=== PATIENT | male | born 1950 | race Caucasian/White ===

== ENCOUNTER 2016-11-04 11:21 | Emergency (ER) | payer MEDICARE ==
--- NOTE | 2016-11-04 12:02 | ER Document Report ---
ED Extremity Problem, Lower - General Chief Complaint: Knee Pain Stated Complaint: KNEE PAIN Time Seen by Provider: 11/04/16 11:41 Mode of Arrival: Ambulatory Information source: Patient TRAVEL OUTSIDE OF THE [place] IN LAST 30 DAYS: No - HPI Patient complains to provider of: Pain Location: Knee Occurred: Last week Quality of pain: Achy Severity: Moderate Pain Level: 2 Recent injury: No Associated symptoms: denies: Chest pain, Chills, Dizzy, Fainting, Fever, Gray a crack, Gray a pop, Hurts to breath, Painful ambulation, Rapid heart rate, Seizure, Short of breath, Sweaty, Unable to bear weight, Weak Exacerbated by: Movement, Walking Relieved by: Rest Notes: Patient arrives with complaints of right knee pain. The patient states that he walks anywhere from 5-11 miles a day for the last week he has been having increased pain in the right knee. No traumatic injury or fall. He feels like the knee is slightly swollen. No redness. No fever. No numbness, tingling, weakness. No chest pain or shortness of breath. He denies any other complaints. Past Medical History - Social History Smoking Status: Former Smoker Frequency of alcohol use: Occasional Drug Abuse: None Family History: Reviewed & Not Pertinent Patient has suicidal ideation: No Patient has homicidal ideation: No - Past Medical History Cardiac Medical History: Reports: Hx Heart Attack Renal/ Medical History: Denies: Hx Peritoneal Dialysis Past Surgical History: Reports: Hx Cardiac Catheterization - Immunizations Hx Diphtheria, Pertussis, Tetanus Vaccination: Yes Review of Systems - Review of Systems -: Yes All other systems reviewed and negative Physical Exam - Vital signs Vitals: Temp Pulse Resp BP Pulse Ox 98.7 F 59 L 18 126/69 H 95 11/04/16 11:26 11/04/16 11:26 11/04/16 11:26 11/04/16 11:26 11/04/16 11:26 - Notes Notes: GENERAL: alert, cooperative, nontoxic, no distress. HEAD: normocephalic, atraumatic EYES: conjunctiva pink without discharge, no external redness or swelling. EARS: no external swelling, no external redness NOSE: atraumatic, no external swelling MOUTH/THROAT: mucous membranes moist and pink NECK: soft, supple, full range of motion, no meningismus. CHEST: no distress, lungs clear and equal throughout. No wheezing, rales, rhonchi. CARDIAC: regular rate and rhythm, no murmur, normal capillary refill, normal pulses. BACK: full range of motion, no CVA tenderness. EXTREMITIES: full range of motion of all extremities. No redness, no swelling. Mild tenderness palpation of the medial aspect of the right knee. No ligament instability. Normal pulse and sensation distally. NEURO: alert and oriented 3, no focal deficits, full range of motion of all extremities. PYSCH: appropriate mood, affect. Patient is cooperative. SKIN: pink, warm, dry, no rash. Course - Re-evaluation Re-evalutation: 11/04/16 12:55 Patient is nontoxic appearing with stable vitals. The patient has had right knee pain for approximately 1 week now. He walks a lot. There is no traumatic injury. He has no ligament instability on his exam. There is no redness or increased heat to touch. He has full range of motion and normal weightbearing. There is no signs of infection. X-ray shows some mild arthritis and a small effusion. This is likely secondary to overuse. Patient had an Ben wrap applied to the right knee by the PCT. Joint is well aligned patient had a normal neuro vascular exam after placement. Patient will be discharged home with instructions to rest, ice, elevate the knee. Wear Ben wrap as needed for comfort. I will discharge him home with a prescription for Naprosyn. He was instructed to follow-up with Cira O or his primary care doctor when he gets back home next week. Follow-up sooner for increased pain, fever, redness or any further concerns. The patient is noted to have elevated blood pressure during today's emergency department visit. The patient was informed of this finding. The patient was instructed that this may be related to pre-hypertension and requires further evaluation with a primary care provider. The patient has no hypertensive symptoms at this time. - Vital Signs Vital signs: Temp Pulse Resp BP Pulse Ox 98.7 F 59 L 18 126/69 H 95 11/04/16 11:26 11/04/16 11:26 11/04/16 11:26 11/04/16 11:11/04/16 11:26 - Diagnostic Test Radiology reviewed: Image reviewed, Reports reviewed - Right knee shows mild arthritis and small joint effusion. Discharge - Discharge Clinical Impression: Knee effusion, right Right knee pain Qualifiers: Chronicity: acute Qualified Code(s): M25.561 - Pain in right knee Condition: Stable Disposition: HOME, SELF-CARE Instructions: Ice & Elevation ([facility]), Sprained Knee ([facility]) Additional Instructions: Take medications as prescribed. Rest, ice, elevate your knee. Wear Ben wrap as needed for comfort. Follow-up with your family doctor or or so when you get home if your pain continues. Follow-up sooner for increased pain, fever, redness, increased heat to the joint, any further concerns. Your blood pressure was elevated during today's visit. Have this rechecked with your doctor. Prescriptions: Naproxen 500 mg PO BID #20 tablet Forms: Elevated Blood Pressure
--- NOTE | 2016-11-04 12:38 | RADIOLOGY REPORT (SQ) ---
EXAM DESCRIPTION: KNEE RIGHT 4 VIEWS COMPLETED DATE/TIME: 11/04/2016 12:20 pm REASON FOR STUDY: pain COMPARISON: None. NUMBER OF VIEWS: Four views. TECHNIQUE: AP, lateral, and both oblique radiographic images acquired of the right knee. LIMITATIONS: None. FINDINGS: MINERALIZATION: Normal. BONES: No acute fracture or dislocation. No worrisome bone lesions. JOINT: Trace suprapatellar knee joint effusion. Very mild patellofemoral and medial compartment join t space narrowing. No bulky bony spurring. SOFT TISSUES: No soft tissue swelling. No radio-opaque foreign body. Atherosclerotic arterial vascu lar calcifications OTHER: No other significant finding. IMPRESSION: No acute fracture or malalignment TECHNICAL DOCUMENTATION: JOB ID: [id number] [employer]- All Rights Reserved
[2016-11-04 13:08] VITALS: BP 115/71
== END 2016-11-04 13:03 | disposition home or self-care (01) ==
LOC: ER 11:21
DX: M17.11 Unilateral primary osteoarthritis, right knee (principal); M25.561 Pain in right knee; M25.461 Effusion, right knee; I25.2 Old myocardial infarction; R03.0 Elevated blood-pressure reading, without diagnosis of hypertension; Z87.891 Personal history of nicotine dependence
CPT/HCPCS: 99283

== ENCOUNTER 2018-01-12 08:25 | Inpatient (IN) | payer MEDICARE ==
[2018-01-12] MEDS ORDERED: KETOROLAC TROMETHAMINE INJ/PF 30 MG/1 ML SDV IV ONE (09:27)
[2018-01-12] MEDS ORDERED: NORMAL SALINE 1000 ML 1,000 ML IV ONE (09:28)
[2018-01-12 09:51] LABS: APPEARANCE,URINE TURBID; BILIRUBIN,URINE NEGATIVE (NEGATIVE); COLOR,URINE YELLOW; GLUCOSE, URINE NEGATIVE (NEGATIVE); KETONES,URINE TRACE mg/dL (NEGATIVE); LEUKOCYTE ESTERASE,URINE LARGE (NEGATIVE); NITRITE,URINE POSITIVE (NEGATIVE); PROTEIN,URINE 100 mg/dL (NEGATIVE); URINE SPECIFIC GRAVITY 1.021
[2018-01-12 09:55] LABS: ABSOLUTE MONOCYTES (AUTO) 1.3 10^3/uL (0.1-1.4); ABSOLUTE NEUT (AUTO) 10.8 10^3/uL (1.7-8.2); BASOPHILS % (AUTO) 0.2 % (0-2); EOSINOPHILS % (AUTO) 0.2 % (0-6); HEMATOCRIT 40.3 % (37.9-51.0); HEMOGLOBIN 13.9 g/dL (13.5-17.0); LYMPHOCYTES % (AUTO) 7.3 % (13-45); MEAN CORPUSCULAR HEMOGLOBIN 32.6 pg (27.0-33.4); MEAN CORPUSCULAR HGB CONC 34.4 g/dL (32.0-36.0); MEAN CORPUSCULAR VOLUME 95 fl (80-97); PLATELET COUNT 120 10^3/uL (150-450); RED BLOOD COUNT 4.26 10^6/uL (4.35-5.55); RED CELL DISTRIBUTION WIDTH 13.5 % (11.5-14.0); SEGMENTED NEUTROPHILS % (AUTO) 82.3 % (42-78); TOTAL CELLS COUNTED % (AUTO) 100 %; WHITE BLOOD COUNT 13.1 10^3/uL (4.0-10.5)
[2018-01-12] MEDS ORDERED: CEFTRIAXONE INJ 1000 MG VIAL IV ONE (10:05)
--- NOTE | 2018-01-12 10:08 | RADIOLOGY REPORT (SQ) ---
EXAM DESCRIPTION: CT LTD RENAL STONE PROTOCOL ON COMPLETED DATE/TIME: 01/12/2018 9:46 am REASON FOR STUDY: hematuria, eval for renal stone COMPARISON: None. TECHNIQUE: CT scan of the abdomen and pelvis performed without intravenous or oral contrast. Images reviewed with lung, soft tissue, and bone windows. Reconstructed coronal and sagittal MPR images revi ewed. All images stored on PACS. All CT scanners at this facility use dose modulation, iterative reconstruction, and/or weight based d osing when appropriate to reduce radiation dose to as low as reasonably achievable (ALARA). [facility]: Dose Right [facility]: CareDose [facility]: Dose Right [facility]: Teradose 4D [facility]: [employer] RADIATION DOSE: CT Rad equipment meets quality standard of care and radiation dose reduction techniq ues were employed. CTDIvol: 18.0 mGy. DLP: 1026 mGy-cm.mGy. LIMITATIONS: None. FINDINGS: LOWER CHEST: No significant findings. No nodules or infiltrates. NON-CONTRASTED LIVER, SPLEEN, ADRENALS: Evaluation limited by lack of IV contrast. No identified sign ificant masses. PANCREAS: No masses. No peripancreatic inflammatory changes. GALLBLADDER: No identified stones by CT criteria. No inflammatory changes to suggest cholecystitis. RIGHT KIDNEY AND URETER: No suspicious masses. Assessment limited by lack of IV contrast. No signif icant calcifications. No hydronephrosis or hydroureter. LEFT KIDNEY AND URETER: No suspicious masses. Assessment limited by lack of IV contrast. 2 cm left p arapelvic cyst. No significant calcifications. No hydronephrosis or hydroureter. AORTA AND RETROPERITONEUM: No aneurysm. No retroperitoneal masses or adenopathy. BOWEL AND PERITONEAL CAVITY: No obvious masses or inflammatory changes. No free fluid. No free intra peritoneal air. No bowel obstruction. Scattered colon diverticuli without CT signs of acute diverti culitis APPENDIX: Normal. PELVIS, BLADDER:Bladder is decompressed, and thick walled. No bladder stones. Grossly normal size p rostate and seminal vesicles. No pelvic adenopathy or free fluid. BONES: No significant findings. OTHER: Small fat containing bilateral inguinal hernias. Umbilical hernia containing fat with increas ed attenuation likely from inflammation. IMPRESSION: No urinary calculi are identified. No hydronephrosis or hydroureter Bladder is decompressed, no bladder stones. Mucosal surface not well seen. COMMENT: Quality ID # [id number]: Final reports with documentation of one or more dose reduction techniques (e.g., Automated exposure control, adjustment of the mA and/or kV according to patient size, use of iterative reconstruction technique) TECHNICAL DOCUMENTATION: JOB ID: [id number] [employer]- All Rights Reserved Reading location - IP/workstation name: [facility]
[2018-01-12 10:14] LABS: ALANINE AMINOTRANSFERASE 23 U/L (21-72); ALBUMIN 3.8 g/dL (3.5-5.0); ALKALINE PHOSPHATASE 66 U/L (38-126); ANION GAP 12 (5-19); ASPARTATE AMINO TRANSFERASE 29 U/L (17-59); BILIRUBIN,DIRECT 0.2 mg/dL (0.0-0.4); BLOOD UREA NITROGEN 27 mg/dL (7-20); CALCIUM 9.4 mg/dL (8.4-10.2); CARBON DIOXIDE 28 mmol/L (22-30); CHLORIDE 101 mmol/L (98-107); GLUCOSE 108 mg/dL (75-110); LIPASE 29.2 U/L (23-300); POTASSIUM 3.8 mmol/L (3.6-5.0); SODIUM 140.5 mmol/L (137-145); TOTAL PROTEIN 6.7 g/dL (6.3-8.2)
[2018-01-12] MEDS ORDERED: NORMAL SALINE 1000 ML 500 ML IV ONE (11:51)
[2018-01-12] MEDS ORDERED: MORPHINE SULFATE 10 MG/ML INJ IV ONE (11:53)
[2018-01-12] MEDS ORDERED: ACETAMINOPHEN 325 MG TABLET PO ONE (13:54)
--- NOTE | 2018-01-12 16:20 | ER Document Report ---
ED GI/ - General Chief Complaint: Flank Pain Stated Complaint: BACK PAIN Time Seen by Provider: 01/12/18 09:05 Mode of Arrival: Ambulatory Information source: Patient Notes: Patient is a 67-year-old male who presents with chief complaint of bilateral flank pain and dysuria that has been occurring for the last 2-3 days. Patient denies any history of similar incidences. Denies any blood in his urine. Denies any possibility of sexually transmitted infections. Reports no fever but has been having chills patient also reports mild nausea but denies vomiting or diarrhea. TRAVEL OUTSIDE OF THE [place] IN LAST 30 DAYS: No - Related Data Allergies/Adverse Reactions: No Known Allergies Allergy (Unverified 01/12/18 09:53) Past Medical History - General Information source: Patient - Social History Smoking Status: Never Smoker Frequency of alcohol use: None Drug Abuse: None Family History: Reviewed & Not Pertinent Patient has suicidal ideation: No Patient has homicidal ideation: No - Past Medical History Cardiac Medical History: Reports: Hx Heart Attack, Hx Hypercholesterolemia Renal/ Medical History: Denies: Hx Peritoneal Dialysis Past Surgical History: Reports: Hx Cardiac Catheterization - Immunizations Hx Diphtheria, Pertussis, Tetanus Vaccination: Yes Review of Systems - Review of Systems Gastrointestinal: Nausea Genitourinary: Burning, Dysuria, Frequency, Flank pain -: Yes All other systems reviewed and negative Physical Exam - Vital signs Vitals: Temp Pulse Resp BP Pulse Ox 98.2 F 84 16 125/60 94 01/12/18 08:33 01/12/18 08:33 01/12/18 08:33 01/12/18 08:33 01/12/18 08:33 - Notes Notes: PHYSICAL EXAMINATION: GENERAL: Well-appearing, well-nourished and in no acute distress. HEAD: Atraumatic, normocephalic. EYES: Pupils equal round and reactive to light, extraocular movements intact, sclera anicteric, conjunctiva are normal. ENT: Nares patent, oropharynx clear without exudates. Moist mucous membranes. NECK: Normal range of motion, supple without lymphadenopathy LUNGS: Breath sounds clear to auscultation bilaterally and equal. No wheezes rales or rhonchi. HEART: Regular rate and rhythm without murmurs ABDOMEN: Soft, nontender, nondistended abdomen. No guarding, no rebound. No masses appreciated. No CVA tenderness. Tenderness to palpation of the suprapubic area. Musculoskeletal: Normal range of motion, no pitting or edema. No cyanosis. NEUROLOGICAL: Cranial nerves grossly intact. Normal speech, normal gait. Normal sensory, motor exams PSYCH: Normal mood, normal affect. SKIN: Warm, Dry, normal turgor, no rashes or lesions noted. Course - Re-evaluation Re-evalutation: CT limited reveals no renal stones, no hydroureter or hydronephrosis. Patient' s white blood count is 13, urine with blood, nitrites, leukocyte esterase and greater than 182 white blood cells. Patient given 1 g Rocephin IV and 1500 mL normal saline. Patient continues to have fever and appears very uncomfortable despite treatment in the emergency department. Hospitalist was consulted and accepted patient for admission for acute pyelonephritis. - Vital Signs Vital signs: Temp Pulse Resp BP Pulse Ox 97.9 F 63 20 120/65 97 01/14/18 20:00 01/14/18 20:00 01/14/18 20:00 01/14/18 20:00 01/14/18 20:00 - Laboratory Result Diagrams: 01/14/18 05:26 01/12/18 09:35 Laboratory results interpreted by me: 01/12/18 01/12/18 01/12/18 09:20 09:35 09:35 WBC 13.1 H RBC 4.26 L Plt Count 120 L Seg Neutrophils % 82.3 H Lymphocytes % 7.3 L Absolute Neutrophils 10.8 H BUN 27 H Urine Protein 100 H Urine Ketones TRACE H Urine Blood LARGE H Urine Nitrite POSITIVE H Urine Urobilinogen 2.0 H Ur Leukocyte Esterase LARGE H Discharge - Discharge Clinical Impression: Pyelonephritis Fever Qualifiers: Fever type: unspecified Qualified Code(s): R50.9 - Fever, unspecified Condition: Stable Disposition: ADMITTED INPATIENT Admitting Provider: Hospitalist Unit Admitted: Telemetry
[2018-01-12] MEDS: NORMAL SALINE 1000 ML 1,000 ML IV PRN (17:08)
--- NOTE | 2018-01-12 19:16 | PDOC H&P ---
History of Present Illness Patient complains of: Dysuria, chills, malaise History of Present Illness: GONZÁLEZ CAO JR is a 67 year old male history of CAD, status post CO x2, last in 2002. Patient is visiting from [place]. Patient reports problem with dysuria and urinary frequency for the past 2-3 days. States he has been urinating a small amount at that time. He has had chills and malaise, no documented fever. Denies history of BPH. He has not had problems with UTI in the past. Evaluation in the ED significant for white blood cells 13.1 and urinalysis large leukocyte esterase, greater than 180 white blood cells. Patient was treated with IV fluid, Rocephin, and referred to the hospitalist service for admission. Past Medical History Cardiac Medical History: Reports: Myocardial Infarction, Hyperlipidema Past Surgical History Past Surgical History: Reports: Cardiac Catheterization Social History Information Source: Patient Smoking Status: Never Smoker Family History Family History: Reviewed & Not Pertinent Parental Family History Reviewed: Yes Children Family History Reviewed: Yes Sibling(s) Family History Reviewed.: Yes Medication/Allergy Home Medications: Aspirin [Ecotrin 81 mg EC Tablet] 81 mg PO DAILY 01/12/18 Cholecalciferol (Vitamin D3) [Vitamin D3 1000 Unit Tablet] 1,000 unit PO DAILY 01/12/18 Lisinopril [Zestril] 20 mg PO DAILY 01/12/18 [place]-3 Fatty Acids/Fish Oil [Fish Oil 1,000 mg Capsule] 1 cap PO DAILY Pravastatin Sodium [Pravastatin Sodium] 80 mg PO QHS 01/12/18 Allergies/Adverse Reactions: No Known Allergies Allergy (Unverified 01/12/18 09:53) Review of Systems Review of Systems: CONSTITUTIONAL : Fever, chills --as seen HPI; unexpalined fatigue -- No EENT: Denies eye, ear, throat, or mouth pain or symptoms. Denies nasal or sinus congestion or discharge. Denies throat, tongue, or mouth swelling or difficulty swallowing. CARDIOVASCULAR: Denies chest pain. No racing heart RESPIRATORY: Denies cough, no shortness of breath, difficulty breathing. GASTROINTESTINAL: Denies abdominal pain or distention. Denies nausea, vomiting , or diarrhea. No rectal bleeding. GENITOURINARY: Urinary symptoms --he has. MUSCULOSKELETAL: No acute weakness SKIN: Denies rash, lesions or sores. HEMATOLOGIC : Denies easy bruising or bleeding. LYMPHATIC: Denies swollen, enlarged glands. NEUROLOGICAL: New weakness, headaches, slured speach - No PSYCHIATRIC: Changes anxiety or stress, depression, suicidal ideation, or homicidal ideation -- No ALL OTHER SYSTEMS REVIEWED AND NEGATIVE. Physical Exam Vital Signs: Temp Pulse Resp BP Pulse Ox 100.3 F 84 27 H 138/69 H 96 01/12/18 13:43 01/12/18 08:33 01/12/18 14:01 01/12/18 14:01 01/12/18 14:01 Intake & Output 01/11/18 01/12/18 01/13/18 06:59 06:59 06:59 Intake Total 1500 Balance 1500 Weight 110 kg GENERAL: Well-developed, well-nourished male, no acute distress HEENT: Normocephalic/atraumatic NECK supple, no JVD CARDIOVASCULAR: RRR, normal S1-S2, no appreciable murmur LUNGS: CTA bilaterally ABDOMEN: Soft, NT, NL bowel sounds EXTREMITIES: No edema, clubbing, cyanosis NEUROLOGICAL: Alert, oriented x 3, nonfocal Results Laboratory Results: 01/12/18 09:35 01/12/18 09:35 01/12/18 01/12/18 01/12/18 09:20 09:35 09:35 WBC 13.1 H RBC 4.26 L Hgb 13.9 Hct 40.3 MCV 95 MCH 32.6 MCHC 34.4 RDW 13.5 Plt Count 120 L Seg Neutrophils % 82.3 H Lymphocytes % 7.3 L Monocytes % 10.0 Eosinophils % 0.2 Basophils % 0.2 Absolute Neutrophils 10.8 H Absolute Lymphocytes 1.0 Absolute Monocytes 1.3 Absolute Eosinophils 0.0 Absolute Basophils 0.0 Sodium 140.5 Potassium 3.8 Chloride 101 Carbon Dioxide 28 Anion Gap 12 BUN 27 H Creatinine 0.83 Est GFR ( Amer) > 60 Est GFR (Non-Af Amer) > 60 Glucose 108 Calcium 9.4 Total Bilirubin 1.0 AST 29 ALT 23 Alkaline Phosphatase 66 Total Protein 6.7 Albumin 3.8 Lipase 29.2 Urine Color YELLOW Urine Appearance TURBID Urine pH 5.0 Ur Specific [place] 1.021 Urine Protein 100 H Urine Glucose (UA) NEGATIVE Urine Ketones TRACE H Urine Blood LARGE H Urine Nitrite POSITIVE H Ur Leukocyte Esterase LARGE H Urine WBC (Auto) >182 Urine RBC (Auto) >182 Impressions: Limited or Localized CT 01/12/18 09:27 IMPRESSION: No urinary calculi are identified. No hydronephrosis or hydroureter Bladder is decompressed, no bladder stones. Mucosal surface not well seen. Assessment & Plan - Diagnosis (1) Pyelonephritis Is this a current diagnosis for this admission?: Yes Plan: CT with no hydronephrosis. Will treat with IV fluid. Continue Rocephin. Follow blood and urine culture results. (2) Coronary artery disease Qualifiers: Coronary Disease-Associated Artery/Lesion type: [place] artery Is this a current diagnosis for this admission?: Yes Plan: Stable. Resume home medications, including aspirin, statin. (3) Hypertension Is this a current diagnosis for this admission?: Yes Plan: Blood pressure running 115 at this time. Will not resume lisinopril for now. Consider resuming tomorrow if blood pressures running higher. - Inpatient Certification Based on my medical assessment, after consideration of the patient's comorbidities, presenting symptoms, or acuity I expect that the services needed warrant INPATIENT care.: Yes I certify that my determination is in accordance with my understanding of Medicare's requirements for reasonable and necessary INPATIENT services [42 CFR 412.3e].: Yes Medical Necessity: Need For IV Fluids, Need for IV Antibiotics
[2018-01-13] MEDS: NORMAL SALINE 1000 ML 1,000 ML IV PRN (06:48)
[2018-01-13] MEDS: ENOXAPARIN SODIUM INJ 40 MG/0.4 ML DISP.SYRIN SUBCUT SCH (09:15)
[2018-01-13] MEDS: CHOLECALCIFEROL (D3) 1,000 UNIT TABLET PO SCH (09:21)
[2018-01-13 09:23] LABS: ABSOLUTE EOSINOPHILS # (AUTO) 0.1 10^3/uL (0.0-0.6); ABSOLUTE LYMPHOCYTES (AUTO) 1.2 10^3/uL (0.5-4.7); ABSOLUTE MONOCYTES (AUTO) 1.3 10^3/uL (0.1-1.4); ABSOLUTE NEUT (AUTO) 6.5 10^3/uL (1.7-8.2); BASOPHILS % (AUTO) 0.3 % (0-2); EOSINOPHILS % (AUTO) 1.3 % (0-6); HEMATOCRIT 39.2 % (37.9-51.0); HEMOGLOBIN 13.2 g/dL (13.5-17.0); MEAN CORPUSCULAR HEMOGLOBIN 32.3 pg (27.0-33.4); MEAN CORPUSCULAR HGB CONC 33.7 g/dL (32.0-36.0); MEAN CORPUSCULAR VOLUME 96 fl (80-97); MONOCYTES % (AUTO) 14.7 % (3-13); PLATELET COUNT 109 10^3/uL (150-450); RED BLOOD COUNT 4.09 10^6/uL (4.35-5.55); RED CELL DISTRIBUTION WIDTH 13.8 % (11.5-14.0); SEGMENTED NEUTROPHILS % (AUTO) 70.7 % (42-78); TOTAL CELLS COUNTED % (AUTO) 100 %; WHITE BLOOD COUNT 9.1 10^3/uL (4.0-10.5)
[2018-01-13] MEDS: CEFTRIAXONE SODIUM 1,000 MG in DEXTROSE 5%-WATER 50 ML IV SCH (09:23)
[2018-01-13] MEDS ORDERED: CEFTRIAXONE 1 GM/D5W RTU 1 GM/50 ML RTUPB IV SCH (10:00)
[2018-01-13] MEDS ORDERED: ASPIRIN 81 MG TABLET, ENT COATED PO SCH (10:00)
--- NOTE | 2018-01-13 12:16 | PDOC PROGRESS REPORT ---
Subjective Progress Note for:: 01/13/18 - seen on rounds this morning Subjective:: states he feels fine. he has no complaints at this time. denies dysuria, abdominal pain, n/v or back pain Reason For Visit: PYELONEPHRITIS Physical Exam Vital Signs: Temp Pulse Resp BP Pulse Ox 97.7 F 69 17 122/73 98 01/13/18 11:46 01/13/18 11:46 01/13/18 11:46 01/13/18 11:46 01/13/18 11:46 Intake & Output 01/12/18 01/13/18 01/14/18 06:59 06:59 06:59 Intake Total 1420 50 Output Total 450 Balance 970 50 Weight 249 lb 1.957 oz General appearance: PRESENT: no acute distress Head exam: PRESENT: atraumatic, normocephalic Eye exam: PRESENT: EOMI. ABSENT: scleral icterus Mouth exam: PRESENT: neck supple, tongue midline Neck exam: ABSENT: tracheal deviation Respiratory exam: PRESENT: clear to auscultation pat, symmetrical Cardiovascular exam: PRESENT: +S1, +S2 Pulses: PRESENT: +2 pedal pulses bilateral GI/Abdominal exam: PRESENT: normal bowel sounds, soft. ABSENT: tenderness Extremities exam: ABSENT: +2 edema Musculoskeletal exam: PRESENT: normal inspection Neurological exam: PRESENT: alert, awake, oriented to person, oriented to place , oriented to time, oriented to situation, CN II-XII grossly intact Skin exam: PRESENT: dry, warm Results Laboratory Results: 01/13/18 09:00 01/13/18 09:00 WBC 9.1 RBC 4.09 L Hgb 13.2 L Hct 39.2 MCV 96 MCH 32.3 MCHC 33.7 RDW 13.8 Plt Count 109 L Seg Neutrophils % 70.7 Lymphocytes % 13.0 Monocytes % 14.7 H Eosinophils % 1.3 Basophils % 0.3 Absolute Neutrophils 6.5 Absolute Lymphocytes 1.2 Absolute Monocytes 1.3 Absolute Eosinophils 0.1 Absolute Basophils 0.0 Impressions: Limited or Localized CT 01/12/18 09:27 IMPRESSION: No urinary calculi are identified. No hydronephrosis or hydroureter Bladder is decompressed, no bladder stones. Mucosal surface not well seen. Assessment & Plan - Diagnosis (1) Pyelonephritis Is this a current diagnosis for this admission?: Yes (2) Hypertension Is this a current diagnosis for this admission?: Yes (3) Coronary artery disease Qualifiers: Coronary Disease-Associated Artery/Lesion type: [place] artery Is this a current diagnosis for this admission?: Yes - Time Time Spent with patient: 15-24 minutes Medications reviewed and adjusted accordingly: Yes Anticipated discharge: Home - Plan Summary Plan Summary: Pyelonephritis- started on IV rocephin for pyelonephritis, remains afebrile, Ucx ordered today- pending. unclear what caused his infection. ? nephrolithiasis. he states he did have severe pain a few days ago and question is did he pass a stone at that time. CT was normal at this time. he might need to follow up with Urologist after discharge. he's aware of this. HTN- lisinopril held on admisison- will start on lower dose of 10mg as his BP is slowly climbing. monitor for now. he remain asymptomatic
[2018-01-13] MEDS: LISINOPRIL 10 MG TABLET PO SCH (14:10)
[2018-01-13] MEDS: ASPIRIN 81 MG TABLET, ENT COATED PO SCH (17:47)
[2018-01-13] MEDS: ATORVASTATIN CALCIUM 20 MG TABLET PO SCH (21:31)
[2018-01-14 05:53] LABS: HEMATOCRIT 36.6 % (37.9-51.0); HEMOGLOBIN 12.3 g/dL (13.5-17.0); MEAN CORPUSCULAR HEMOGLOBIN 31.7 pg (27.0-33.4); MEAN CORPUSCULAR HGB CONC 33.5 g/dL (32.0-36.0); MEAN CORPUSCULAR VOLUME 95 fl (80-97); PLATELET COUNT 109 10^3/uL (150-450); RED BLOOD COUNT 3.87 10^6/uL (4.35-5.55); RED CELL DISTRIBUTION WIDTH 13.5 % (11.5-14.0); WHITE BLOOD COUNT 6.7 10^3/uL (4.0-10.5)
[2018-01-14] MEDS: ENOXAPARIN SODIUM INJ 40 MG/0.4 ML DISP.SYRIN SUBCUT SCH (09:12)
[2018-01-14] MEDS: CEFTRIAXONE SODIUM 1,000 MG in DEXTROSE 5%-WATER 50 ML IV SCH (09:14)
[2018-01-14] MEDS: LISINOPRIL 10 MG TABLET PO SCH (09:14)
[2018-01-14] MEDS: CHOLECALCIFEROL (D3) 1,000 UNIT TABLET PO SCH (09:14)
[2018-01-14] MEDS: CIPROFLOXACIN HCL 0.3% OPH SOLN 2.5 ML OP SCH ×7 (10:04→21:22)
--- NOTE | 2018-01-14 13:31 | PDOC PROGRESS REPORT ---
Subjective Progress Note for:: 01/14/18 - seen on rounds this morning Subjective:: states he feels fine- has no complaints of abdominal pain, dysuria, n/v, chest pain or SOB. discussed about d/c plans Reason For Visit: PYELONEPHRITIS Physical Exam Vital Signs: Temp Pulse Resp BP Pulse Ox 97.5 F 56 L 16 129/81 H 100 01/14/18 11:29 01/14/18 11:29 01/14/18 11:29 01/14/18 11:29 01/14/18 11:29 Intake & Output 01/13/18 01/14/18 01/15/18 06:59 06:59 06:59 Intake Total 1420 2426 591 Output Total 450 1950 100 Balance 970 476 491 Weight 249 lb 1.957 oz 250 lb 0.067 oz General appearance: PRESENT: no acute distress Head exam: PRESENT: atraumatic, normocephalic Eye exam: PRESENT: conjunctival injection - left, EOMI, PERRLA. ABSENT: scleral icterus Ear exam: PRESENT: normal external ear exam Mouth exam: PRESENT: neck supple, tongue midline Neck exam: ABSENT: tracheal deviation Respiratory exam: PRESENT: clear to auscultation pat, symmetrical Cardiovascular exam: PRESENT: +S1, +S2 Pulses: PRESENT: +2 pedal pulses bilateral GI/Abdominal exam: PRESENT: normal bowel sounds, soft. ABSENT: tenderness Extremities exam: ABSENT: pedal edema Neurological exam: PRESENT: alert, awake, oriented to person, oriented to place , oriented to time, oriented to situation, CN II-XII grossly intact Skin exam: PRESENT: dry, warm Results Laboratory Results: 01/14/18 05:26 01/14/18 01/14/18 05:26 05:26 WBC 6.7 RBC 3.87 L Hgb 12.3 L Hct 36.6 L MCV 95 MCH 31.7 MCHC 33.5 RDW 13.5 Plt Count 109 L Magnesium 2.0 Impressions: Limited or Localized CT 01/12/18 09:27 IMPRESSION: No urinary calculi are identified. No hydronephrosis or hydroureter Bladder is decompressed, no bladder stones. Mucosal surface not well seen. Assessment & Plan - Diagnosis (1) Pyelonephritis Is this a current diagnosis for this admission?: Yes (2) Hypertension Is this a current diagnosis for this admission?: Yes (3) Coronary artery disease Qualifiers: Coronary Disease-Associated Artery/Lesion type: [place] artery Is this a current diagnosis for this admission?: Yes (4) Conjunctivitis Qualifiers: Conjunctivitis type: acute Laterality: left Is this a current diagnosis for this admission?: Yes - Plan Summary Plan Summary: Pyelonephritis- started on IV rocephin for pyelonephritis, remains afebrile, Ucx ordered and pending. unclear what caused his infection. ?nephrolithiasis. he states he did have severe pain a few days ago and question is did he pass a stone at that time. CT was normal at this time. he will need to follow up with Urologist after discharge. he's aware of this. left eye conjunctivitis- noted today- will start him on polytrim drops. warm compresses if needed HTN- lisinopril held on admisison- restarted on lower dose of Lisinopril at this time- monitor for now. he remains asymptomatic discussed about d/c plans- unfortunately no UCx sent on admission- i sent one and still pending- if tomorrow there's any growth i can adjust- if not growth then he can be discharged on bactrim or keflex for 7 days total
[2018-01-14] MEDS: ASPIRIN 81 MG TABLET, ENT COATED PO SCH (18:14)
[2018-01-14] MEDS: ATORVASTATIN CALCIUM 20 MG TABLET PO SCH (21:22)
[2018-01-15] MEDS: CIPROFLOXACIN HCL 0.3% OPH SOLN 2.5 ML OP SCH ×3 (05:09→09:00)
[2018-01-15] MEDS: CHOLECALCIFEROL (D3) 1,000 UNIT TABLET PO SCH (09:00)
[2018-01-15] MEDS: LISINOPRIL 10 MG TABLET PO SCH (09:00)
[2018-01-15] MEDS: CEFTRIAXONE SODIUM 1,000 MG in DEXTROSE 5%-WATER 50 ML IV SCH (09:00)
[2018-01-15] MEDS: ENOXAPARIN SODIUM INJ 40 MG/0.4 ML DISP.SYRIN SUBCUT SCH (09:01)
[2018-01-15 10:05] VITALS: BP 124/77
--- NOTE | 2018-01-15 13:58 | PDOC DISCHARGE SUMMARY ---
General - Admit/Disc Date/PCP Admission Date/Primary Care Provider: 01/12/18 16:46 Discharge Date: 01/15/18 - seen on rounds this morning - Discharge Diagnosis (1) Pyelonephritis Is this a current diagnosis for this admission?: Yes (2) Hypertension Is this a current diagnosis for this admission?: Yes (3) Coronary artery disease Is this a current diagnosis for this admission?: Yes (4) Conjunctivitis Is this a current diagnosis for this admission?: Yes - Additional Information Discharge Diet: As Tolerated Discharge Activity: Activity As Tolerated, Slowly Increase Activity Prescriptions: Ciprofloxacin HCl [Ciloxan 0.3% Oph Soln 2.5 ml] 2 drop OP Q4HWA #1 bottle Sulfamethoxazole/Trimethoprim [Bactrim Ds Tablet] 1 each PO Q12 4 Days #8 tablet Home Medications: Aspirin [Ecotrin 81 mg EC Tablet] 81 mg PO DAILY 01/12/18 Cholecalciferol (Vitamin D3) [Vitamin D3 1000 Unit Tablet] 1,000 unit PO DAILY 01/12/18 Lisinopril [Zestril] 20 mg PO DAILY 01/12/18 [place]-3 Fatty Acids/Fish Oil [Fish Oil 1,000 mg Capsule] 1 cap PO DAILY Pravastatin Sodium 80 mg PO QHS 01/12/18 Ciprofloxacin HCl [Ciloxan 0.3% Oph Soln 2.5 ml] 2 drop OP Q4HWA #1 bottle 01/15 Sulfamethoxazole/Trimethoprim [Bactrim Ds Tablet] 1 each PO Q12 4 Days #8 tablet 01/15/18 History of Present Illness History of Present Illness: GONZÁLEZ CAO JR is a 67 year old male was admitted to the hospital for acute pyelonephritis- see H&P for initially assessment and plan Hospital Course Hospital Course: he was started on IV Rocephin and his symptoms resolved within 24-36 hours. initially no UCx were sent- i sent cultures on day 2- so far no growth- patient requesting discharge- will d/c on Bactrim- i did speak with this daughter June over the phone. she's a pharmacist- she agrees with bactrim also. i did tell them that i will call them if any cultures steel turner positive. i am not so sure what caused his UTI and acute pyelonephritis- did he pass a renal stone? i have asked him to follow up with urologist and PCP on day 3 he also had left eye conjunctivitis - started him on cipro drops. gave instructions as stated below for follow up- Follow up with your PCP within 1 week start taking Bactrim twice daily for 4 more days starting tomorrow start taking cipro eye drops every 4-6 hours while awake for next 5-7 days follow up with urologist if you have similar symptoms again. also talk to your pcp about check your prostate patient verbalized understanding all of my instructions today Physical Exam Vital Signs: Temp Pulse Resp BP Pulse Ox 98.1 F 62 16 148/82 H 99 01/15/18 07:33 01/15/18 07:33 01/15/18 07:33 01/15/18 07:33 01/15/18 07:33 Intake & Output 01/14/18 01/15/18 01/16/18 06:59 06:59 06:59 Intake Total 2426 1699 Output Total 1950 100 Balance 476 1599 Weight 250 lb 0.067 oz 250 lb 7.122 oz General appearance: PRESENT: no acute distress Head exam: PRESENT: atraumatic, normocephalic Eye exam: PRESENT: conjunctival injection, EOMI, PERRLA. ABSENT: scleral icterus Ear exam: PRESENT: normal external ear exam Mouth exam: PRESENT: tongue midline Neck exam: ABSENT: tracheal deviation Respiratory exam: PRESENT: clear to auscultation pat, symmetrical Pulses: PRESENT: +2 pedal pulses bilateral GI/Abdominal exam: PRESENT: normal bowel sounds, soft. ABSENT: tenderness Extremities exam: ABSENT: pedal edema Neurological exam: PRESENT: alert, awake, oriented to person, oriented to place , oriented to time, oriented to situation, CN II-XII grossly intact Skin exam: PRESENT: dry, warm Results Laboratory Results: 01/14/18 05:26 Impressions: Limited or Localized CT 01/12/18 09:27 IMPRESSION: No urinary calculi are identified. No hydronephrosis or hydroureter Bladder is decompressed, no bladder stones. Mucosal surface not well seen. Qualifiers - * PATIENT BEING DISCHARGED WITH ANY OF THE FOLLOWING DIAGNOSIS: No Plan Time Spent: Less than 30 Minutes
[2018-01-16] MEDS ORDERED: CIPROFLOXACIN HCL 0.3% OPH SOLN 2.5 ML OP SCH (10:00)
== END 2018-01-15 10:42 | disposition home or self-care (01) | DRG 690 ==
LOC: ER 08:25 → EH 16:46 → 4S 18:15
PROVIDERS: ADMIT Internal Medicine; ATTEND Internal Medicine
DX: N10 Acute pyelonephritis (principal); I10 Essential (primary) hypertension; I25.10 Atherosclerotic heart disease of native coronary artery without angina pectoris; H10.9 Unspecified conjunctivitis; I25.2 Old myocardial infarction; E78.5 Hyperlipidemia, unspecified; Z79.82 Long term (current) use of aspirin; Z79.899 Other long term (current) drug therapy; Z23 Encounter for immunization
CPT/HCPCS: 36415; 76380; 80053; 81001; 83690; 83735; 85025; 85027; 87086; 90471; 90686; 96361; 96365; 96375; 99285; G0008; J0696; J1885; J2270; J3490; J7030

== ENCOUNTER 2018-01-30 09:58 | Inpatient (IN) | payer MEDICARE ==
[2018-01-30] MEDS ORDERED: NORMAL SALINE 1000 ML 1,000 ML IV ONE (10:34)
--- NOTE | 2018-01-30 10:39 | ER Document Report ---
ED Medical Screen (RME) - General Chief Complaint: Flank Pain Stated Complaint: FLANK PAIN Time Seen by Provider: 01/30/18 10:33 TRAVEL OUTSIDE OF THE [place] IN LAST 30 DAYS: No - Related Data Allergies/Adverse Reactions: No Known Allergies Allergy (Verified 01/30/18 10:32) Past Medical History - Social History Chew tobacco use (# tins/day): No Frequency of alcohol use: Occasional Drug Abuse: None - Past Medical History Cardiac Medical History: Reports: Hx Heart Attack - x2, Hx Hypercholesterolemia Renal/ Medical History: Denies: Hx Peritoneal Dialysis Past Surgical History: Reports: Hx Cardiac Catheterization - stent x 2 - Immunizations Hx Diphtheria, Pertussis, Tetanus Vaccination: Yes Physical Exam - Vital signs Vitals: Temp Pulse Resp BP Pulse Ox 98.3 F 93 16 108/63 97 01/30/18 10:03 01/30/18 10:03 01/30/18 10:03 01/30/18 10:03 01/30/18 10:03 Course - Re-evaluation Re-evalutation: 01/30/18 10:38 67-year-old man that we presents for evaluation of hematuria he also notes right -sided flank pain. He was previously evaluated for and admitted for a urinary tract infection with concern for pyelonephritis recently. He returned because he began to have hematuria again over the last 2 days with associated pain and low-grade fevers. I have seen and performed a rapid medical screening examination for this patient. They will require further investigation and disposition determination by a second provider . - Vital Signs Vital signs: Temp Pulse Resp BP Pulse Ox 98.3 F 93 16 108/63 97 01/30/18 10:03 01/30/18 10:03 01/30/18 10:03 01/30/18 10:03 01/30/18 10:03
[2018-01-30 11:23] LABS: ABSOLUTE BASOPHILS # (AUTO) 0.1 10^3/uL (0.0-0.2); ABSOLUTE LYMPHOCYTES (AUTO) 0.9 10^3/uL (0.5-4.7); ABSOLUTE MONOCYTES (AUTO) 1.7 10^3/uL (0.1-1.4); BASOPHILS % (AUTO) 0.4 % (0-2); EOSINOPHILS % (AUTO) 0.1 % (0-6); HEMATOCRIT 42.4 % (37.9-51.0); HEMOGLOBIN 14.3 g/dL (13.5-17.0); LYMPHOCYTES % (AUTO) 5.6 % (13-45); MEAN CORPUSCULAR HEMOGLOBIN 31.9 pg (27.0-33.4); MEAN CORPUSCULAR HGB CONC 33.7 g/dL (32.0-36.0); MEAN CORPUSCULAR VOLUME 95 fl (80-97); MONOCYTES % (AUTO) 10.1 % (3-13); PLATELET COUNT 188 10^3/uL (150-450); RED BLOOD COUNT 4.48 10^6/uL (4.35-5.55); RED CELL DISTRIBUTION WIDTH 13.4 % (11.5-14.0); SEGMENTED NEUTROPHILS % (AUTO) 83.8 % (42-78); TOTAL CELLS COUNTED % (AUTO) 100 %; WHITE BLOOD COUNT 16.7 10^3/uL (4.0-10.5)
[2018-01-30 11:28] LABS: VENOUS BLOOD HCO3 32.3 mmol/L (20-32); VENOUS BLOOD PCO2 63.5 mmHg (35-63); VENOUS BLOOD PH 7.32 (7.30-7.42)
--- NOTE | 2018-01-30 11:28 | ER Document Report ---
ED GI/ - General Chief Complaint: Flank Pain Stated Complaint: FLANK PAIN Time Seen by Provider: 01/30/18 10:33 Notes: Patient is complaining of pain in the right flank into the right groin region for the past couple of days. He is having blood in his urine, but only at nighttime. Did not have blood in his urine this morning. Patient was just in this hospital and discharged 2 weeks ago after treatment of a urinary tract infection. He had a CT scan done at that time that did not show evidence of a kidney stone. He was discharged from the hospital on oral antibiotics for about a week which he completed as planned. Has not had antibiotics in over a week now. He says he had a low-grade fever last night of 99.2. Feels achy all over. Denies any discomfort urinating, only the blood. No nausea or vomiting. No constipation. Has never had previous kidney stones or kidney infections. PMH: Cardiac stents x2, hypertension, high cholesterol. TRAVEL OUTSIDE OF THE [place] IN LAST 30 DAYS: No - Related Data Allergies/Adverse Reactions: No Known Allergies Allergy (Verified 01/30/18 10:32) Past Medical History - Social History Smoking Status: Never Smoker Chew tobacco use (# tins/day): No Frequency of alcohol use: Occasional Drug Abuse: None Family History: Reviewed & Not Pertinent Patient has suicidal ideation: No Patient has homicidal ideation: No - Past Medical History Cardiac Medical History: Reports: Hx Coronary Artery Disease, Hx Heart Attack - x2, Hx Hypercholesterolemia, Hx Hypertension Past Surgical History: Reports: Hx Cardiac Catheterization - stent x 2, Hx Coronary Stent. Denies: Hx Abdominal Surgery - Immunizations Hx Diphtheria, Pertussis, Tetanus Vaccination: Yes Review of Systems - Review of Systems Notes: REVIEW OF SYSTEMS: CONSTITUTIONAL : Low-grade fever. EENT: Denies eye, ear, nose or mouth or throat pain or other symptoms. CARDIOVASCULAR: Denies chest pain. RESPIRATORY: Denies cough, chest congestion, or shortness of breath. GASTROINTESTINAL: See HPI. GENITOURINARY: See HPI. MUSCULOSKELETAL: Has right flank pain, but denies back or neck pain. Denies joint pain or swelling. SKIN: Denies rash or skin lesions. NEUROLOGICAL: Denies LOC or altered mental status. Denies headache. Denies sensory loss or motor deficits. ALL OTHER SYSTEMS REVIEWED AND NEGATIVE. Physical Exam - Vital signs Vitals: Temp Pulse Resp BP Pulse Ox 98.3 F 93 16 108/63 97 01/30/18 10:03 01/30/18 10:03 01/30/18 10:03 01/30/18 10:03 01/30/18 10:03 Interpretation: Normal Notes: PHYSICAL EXAMINATION: GENERAL: Well-appearing, in no acute distress. HEAD: Atraumatic, normocephalic. EYES: Pupils equal round and reactive to light, extraocular movements intact. ENT: oropharynx clear without exudates. Moist mucous membranes. NECK: Normal range of motion, supple. LUNGS: Breath sounds clear and equal bilaterally. HEART: Regular rate and rhythm without murmurs. ABDOMEN: Soft, nontender. No guarding or rebound. No masses. No bruits heard. BACK: No tenderness throughout entire back. EXTREMITIES: Normal range of motion without pain. NEUROLOGICAL: Normal speech, normal gait. Normal sensory, motor, and reflex exams. Awake, alert, and oriented x3. Cranial nerves normal. PSYCH: Normal mood, normal affect. SKIN: Warm, dry, no rashes. Course - Vital Signs Vital signs: Temp Pulse Resp BP Pulse Ox 99.0 F 93 16 108/63 97 01/30/18 13:23 01/30/18 10:03 01/30/18 10:03 01/30/18 10:03 01/30/18 10:03 - Laboratory Result Diagrams: 01/30/18 10:50 01/30/18 10:50 Laboratory results interpreted by me: 01/30/18 01/30/18 01/30/18 10:50 10:50 10:50 WBC 16.7 H Seg Neutrophils % 83.8 H Lymphocytes % 5.6 L Absolute Neutrophils 14.0 H Absolute Monocytes 1.7 H VBG pCO2 63.5 H VBG HCO3 32.3 H Carbon Dioxide 31 H BUN 25 H ALT 20 L Urine Protein Urine Blood Urine Nitrite Ur Leukocyte Esterase 01/30/18 10:50 WBC Seg Neutrophils % Lymphocytes % Absolute Neutrophils Absolute Monocytes VBG pCO2 VBG HCO3 Carbon Dioxide BUN ALT Urine Protein 100 H Urine Blood MODERATE H Urine Nitrite POSITIVE H Ur Leukocyte Esterase LARGE H Discharge - Discharge Clinical Impression: UTI (urinary tract infection) Condition: Stable Disposition: ADMITTED INPATIENT Admitting Provider: Hospitalist Unit Admitted: Medical Floor
[2018-01-30 11:35] LABS: APPEARANCE,URINE CLOUDY; BILIRUBIN,URINE NEGATIVE (NEGATIVE); COLOR,URINE YELLOW; GLUCOSE, URINE NEGATIVE (NEGATIVE); KETONES,URINE NEGATIVE (NEGATIVE); LEUKOCYTE ESTERASE,URINE LARGE (NEGATIVE); NITRITE,URINE POSITIVE (NEGATIVE); PROTEIN,URINE 100 mg/dL (NEGATIVE); URINE SPECIFIC GRAVITY 1.011; UROBILINOGEN,URINE NEGATIVE mg/dL (<2.0)
[2018-01-30 11:45] LABS: ALANINE AMINOTRANSFERASE 20 U/L (21-72); ALBUMIN 4.3 g/dL (3.5-5.0); ALKALINE PHOSPHATASE 77 U/L (38-126); ANION GAP 13 (5-19); ASPARTATE AMINO TRANSFERASE 27 U/L (17-59); BILIRUBIN,DIRECT 0.2 mg/dL (0.0-0.4); BLOOD UREA NITROGEN 25 mg/dL (7-20); CALCIUM 9.9 mg/dL (8.4-10.2); CARBON DIOXIDE 31 mmol/L (22-30); CHLORIDE 99 mmol/L (98-107); GLUCOSE 107 mg/dL (75-110); LIPASE 42.3 U/L (23-300); POTASSIUM 4.4 mmol/L (3.6-5.0); SODIUM 142.6 mmol/L (137-145); TOTAL PROTEIN 7.4 g/dL (6.3-8.2)
--- NOTE | 2018-01-30 12:46 | RADIOLOGY REPORT (SQ) ---
EXAM DESCRIPTION: CT LTD RENAL STONE PROTOCOL ON COMPLETED DATE/TIME: 01/30/2018 11:55 am REASON FOR STUDY: Right flank, groin pain, interm hematuria recenUTI COMPARISON: None. TECHNIQUE: CT scan of the abdomen and pelvis performed without intravenous or oral contrast. Images reviewed with lung, soft tissue, and bone windows. Reconstructed coronal and sagittal MPR images revi ewed. All images stored on PACS. All CT scanners at this facility use dose modulation, iterative reconstruction, and/or weight based d osing when appropriate to reduce radiation dose to as low as reasonably achievable (ALARA). [facility]: Dose Right [facility]: CareDose [facility]: Dose Right [facility]: Teradose 4D [facility]: Smart Synaptic Digital RADIATION DOSE: CT Rad equipment meets quality standard of care and radiation dose reduction techniq ues were employed. CTDIvol: 18.4 mGy. DLP: 992 mGy-cm.mGy. LIMITATIONS: None. FINDINGS: LOWER CHEST: No significant findings. No nodules or infiltrates. NON-CONTRASTED LIVER, SPLEEN, ADRENALS: Evaluation limited by lack of IV contrast. No identified sign ificant masses. PANCREAS: No masses. No peripancreatic inflammatory changes. GALLBLADDER: No identified stones by CT criteria. No inflammatory changes to suggest cholecystitis. RIGHT KIDNEY AND URETER: Extrarenal pelvis on the right, normal anatomic variant. Very small focal intrarenal vascular calcification. Slight to mild perinephric linear soft tissue stranding may be re lated to prior inflammatory changes. Assessment limited by lack of IV contrast. No hydronephrosis hy droureter. LEFT KIDNEY AND URETER: Slight to mild perinephric linear soft tissue stranding may be related prior inflammatory changes. Left parapelvic renal cyst. Assessment limited by lack of IV contrast. AORTA AND RETROPERITONEUM: Atherosclerotic changes involving the abdominal aorta and branch vessels. No aneurysm. No retroperitoneal masses or adenopathy. BOWEL AND PERITONEAL CAVITY: Constipation. No free fluid. APPENDIX: Normal. PELVIS, BLADDER, AND ABDOMINAL WALL: Small to mild umbilical hernia contains fat and small mesenteri c vessels. There is haziness involving the fat within the umbilical hernia raising the question of i nflammatory changes. No free fluid. Small fat containing left inguinal hernia. The urinary bladder is incompletely distended. Diffuse t hickening of the bladder wall is suggested. The prostate gland measures 4.5 cm in diameter. Prostat ic concretions. BONES: Moderate to moderate severe facet arthrosis L5-S1. Degenerative disc disease at L4-5. Heman gioma within the L2 vertebral body, benign finding. OTHER: No other significant finding. IMPRESSION: 1. Diffuse urinary bladder wall thickening is suggested. 2. Small to mild umbilical hernia contains fat and mesenteric vessels. There is haziness involving the fat within the umbilical hernia raising question of inflammatory changes. 3. Small fat containing left inguinal hernia. 4. Additional findings as above. . COMMENT: Quality ID # [id number]: Final reports with documentation of one or more dose reduction techniques (e.g., Automated exposure control, adjustment of the mA and/or kV according to patient size, use of iterative reconstruction technique) TECHNICAL DOCUMENTATION: JOB ID: [id number] [employer]- All Rights Reserved Reading location - IP/workstation name: [email or web address]
[2018-01-30] MEDS ORDERED: CEFTRIAXONE INJ 1000 MG VIAL IV ONE (12:51)
[2018-01-30] MEDS ORDERED: ONDANSETRON 4 MG TAB.RAPDIS PO PRN (14:34)
[2018-01-30] MEDS ORDERED: ONDANSETRON HCL INJ/PF 4 MG/2 ML SDV IV PRN (14:34)
[2018-01-30] MEDS ORDERED: ZOLPIDEM TARTRATE 5 MG TABLET PO PRN (14:34)
[2018-01-30] MEDS ORDERED: MAG HYDROX/AL HYDROX/SIMETH SUSP 30 ML UDCUP PO PRN (14:34)
[2018-01-30] MEDS ORDERED: [UNRECOGNIZED DRUG - OTHER] IV PRN (14:54)
--- NOTE | 2018-01-30 19:26 | PDOC H&P ---
History of Present Illness Admission Date/PCP: 01/30/18 15:22 Patient complains of: Right flank pain History of Present Illness: GONZÁLEZ CAO JR is a 67 year old male who presented to the emergency room with a 3-day history of gradually worsening right flank pain. He describes the current pain as being moderately severe, colicky cramping in his right flank which waxes and wanes in intensity and radiates into the right groin at times. He admits accompanying symptoms of a low-grade fever, hematuria, urinary frequency and generalized malaise. He further relates that he was recently treated for urinary tract infection here at [facility] and though no infectious organism was identified he was sent home with Bactrim DS to finish a course of therapy. After the therapy was completed he had a week or so before he began having early symptoms again. In the emergency room patient was found to have significant pyuria with a positive nitrite reaction on the urinalysis. He was also noted to have a moderate leukocytosis and as such it was deemed that he should be considered a outpatient treatment failure and be admitted for broad-spectrum IV antibiotic therapy until such time as his urine culture can aid in focusing antibiotic therapy. Past Medical History Cardiac Medical History: Reports: Coronary Artery Disease, Myocardial Infarction - x2, Hyperlipidema, Hypertension Pulmonary Medical History: Denies: Asthma, Chronic Obstructive Pulmonary Disease (COPD), Tuberculosis EENT Medical History: Reports: None Neurological Medical History: Denies: Hemorrhagic CVA, Ischemic CVA, Seizures Endocrine Medical History: Denies: Diabetes Mellitus Type 1, Diabetes Mellitus Type 2, Hyperthyroidism, Hypothyroidism Renal/ Medical History: Denies: Chronic Kidney Disease, Nephrolithiasis Malignancy Medical History: Reports: None GI Medical History: Denies: Crohn's Disease, Ulcerative Colitis Musculoskeltal Medical History: Denies: Arthritis, Fibromyalgia, Gout Skin Medical History: Denies: Eczema, Psoriasis Psychiatric Medical History: Denies: Alcohol Dependency, Depression, General Anxiety Disorder, Substance Abuse, Tobacco Dependency Traumatic Medical History: Reports: None Hematology: Denies: Anemia, Bleeding Tendencies Infectious Medical History: Reports: None Past Surgical History Past Surgical History: Reports: Cardiac Catheterization - stent x 2, Coronary Stent Social History Information Source: Patient Lives with: Family Smoking Status: Never Smoker Frequency of Alcohol Use: Occasional Hx Recreational Drug Use: No Drugs: None Hx Prescription Drug Abuse: No - Advance Directive Resuscitation Status: Full Code Surrogate healthcare decision maker:: Family History Family History: CAD, Hypertension Parental Family History Reviewed: Yes Children Family History Reviewed: Yes Sibling(s) Family History Reviewed.: Yes Medication/Allergy Home Medications: Aspirin [Adult Low Dose Aspirin EC] 81 mg PO DAILY 01/30/18 Cholecalciferol (Vitamin D3) [Vitamin D3 1000 Unit Tablet] 1,000 unit PO DAILY 01/30/18 Lisinopril [Zestril] 20 mg PO DAILY 01/30/18 Sparks-3 Fatty Acids/Fish Oil [Fish Oil 1,000 mg Capsule] 1 cap PO DAILY Pravastatin Sodium [Pravachol] 80 mg PO QHS 01/30/18 Allergies/Adverse Reactions: No Known Allergies Allergy (Verified 01/30/18 10:32) Review of Systems Constitutional: PRESENT: fever(s), other - Malaise. ABSENT: chills, night sweats Eyes: ABSENT: visual disturbances, other - Ocular pain Ears: ABSENT: hearing changes, other - Ear pain Nose, Mouth, and Throat: ABSENT: mouth pain, sore throat Cardiovascular: ABSENT: chest pain, dyspnea on exertion, edema, orthropnea, palpitations Respiratory: ABSENT: cough, dyspnea, hemoptysis Gastrointestinal: PRESENT: as per HPI, abdominal pain - Right flank pain radiating to groin as noted in the history of present. ABSENT: constipation, diarrhea, dysphagia, heartburn, hematemesis, hematochezia, melena, nausea, vomiting Genitourinary: PRESENT: as per HPI, hematuria, nocturia, other - Urinary frequency, right flank pain radiating to groin. ABSENT: difficulty urinating, dysuria Musculoskeletal: ABSENT: deformity, joint swelling Integumentary: ABSENT: pruritus, rash Neurological: ABSENT: confusion, convulsions, lack of coordination, memory loss , tremor(s), vertigo Psychiatric: ABSENT: anxiety, depression Endocrine: ABSENT: cold intolerance, heat intolerance Hematologic/Lymphatic: ABSENT: easy bleeding, easy bruising Allergic/Immunologic: ABSENT: seasonal rhinorrhea, other - Insect bite allergy Physical Exam Vital Signs: Temp Pulse Resp BP Pulse Ox 98.5 F 99 22 H 108/53 L 96 01/30/18 18:06 01/30/18 18:06 01/30/18 18:06 01/30/18 18:06 01/30/18 18:06 Intake & Output 01/28/18 01/29/18 01/30/18 23:59 23:59 23:59 Intake Total 1000 Balance 1000 General appearance: PRESENT: no acute distress, cooperative, obese Head exam: PRESENT: atraumatic, normocephalic Eye exam: PRESENT: conjunctiva pink, EOMI. ABSENT: conjunctival injection, nystagmus, periorbital swelling, scleral icterus Ear exam: PRESENT: normal external ear exam. ABSENT: bleeding, drainage Mouth exam: PRESENT: neck supple, other - Oral mucosa is within normal limits, dentition is in good repair Neck exam: ABSENT: JVD, thyromegaly, tracheal deviation Respiratory exam: PRESENT: clear to auscultation pat, symmetrical, unlabored Cardiovascular exam: PRESENT: RRR. ABSENT: clicks, gallop, rubs Pulses: PRESENT: normal radial pulses, normal dorsalis pedis pul Vascular exam: PRESENT: normal capillary refill. ABSENT: pallor GI/Abdominal exam: PRESENT: normal bowel sounds, soft, tenderness - Right flank tenderness noted Rectal exam: PRESENT: deferred Gentrourinary exam: PRESENT: other - Right CVA tenderness 3+. ABSENT: indwelling catheter Extremities exam: ABSENT: joint swelling, pedal edema Musculoskeletal exam: PRESENT: full ROM, normal inspection Neurological exam: PRESENT: alert, oriented to person, oriented to place, oriented to time, oriented to situation, CN II-XII grossly intact. ABSENT: motor sensory deficit Psychiatric exam: PRESENT: appropriate affect, normal mood Skin exam: PRESENT: dry, intact, warm. ABSENT: jaundice, rash, urticaria Results Impressions: Limited or Localized CT 01/30/18 11:29 IMPRESSION: 1. Diffuse urinary bladder wall thickening is suggested. 2. Small to mild umbilical hernia contains fat and mesenteric vessels. There is haziness involving the fat within the umbilical hernia raising question of inflammatory changes. 3. Small fat containing left inguinal hernia. 4. Additional findings as above. . Assessment & Plan - Diagnosis (1) Pyelonephritis Is this a current diagnosis for this admission?: Yes Plan: Patient is admitted for IV antibiotic therapy with broad-spectrum agents as he essentially has failed therapy on previous treatment as an inpatient and outpatient. He will be started on Invanz until culture C&S results can help to focus antibiotic therapy. He will be given pain control for his pyelonephritis as well as morphine on a sliding scale basis 2-4 mg IV q. 2 hours as needed pain. (2) Coronary artery disease Qualifiers: Coronary Disease-Associated Artery/Lesion type: [place] artery [place] vs. transplanted heart: [place] heart Associated angina: angina presence unspecified Qualified Code(s): I25.10 - Atherosclerotic heart disease of [place] coronary artery without angina pectoris Is this a current diagnosis for this admission?: Yes Plan: Patient will be continued on his current cardiac regimen throughout his hospital course and time of discharge. (3) Hypertension Is this a current diagnosis for this admission?: Yes Plan: Patient will be continued on his current antihypertensive regimen throughout his hospital course and at the time of discharge. (4) Fever Qualifiers: Fever type: unspecified Qualified Code(s): R50.9 - Fever, unspecified Is this a current diagnosis for this admission?: Yes Plan: Patient's fever will be addressed by utilizing acetaminophen 650 mg every 4 hours as needed. - Time Time Spent: 30 to 50 Minutes Medications reviewed and adjusted accordingly: Yes Anticipated discharge: Home Within: within 72 hours - Inpatient Certification Based on my medical assessment, after consideration of the patient's comorbidities, presenting symptoms, or acuity I expect that the services needed warrant INPATIENT care.: Yes I certify that my determination is in accordance with my understanding of Medicare's requirements for reasonable and necessary INPATIENT services [42 CFR 412.3e].: Yes Medical Necessity: Failure to Improve With Outpatient Therapy, Need for IV Antibiotics
[2018-01-30] MEDS ORDERED: MORPHINE SULFATE 10 MG/ML INJ IV PRN ×3 (19:27)
[2018-01-30] MEDS ORDERED: ACETAMINOPHEN 650 MG SUPP.RECT PR PRN (19:28)
[2018-01-30] MEDS: ERTAPENEM SODIUM 1 GM in NORMAL SALINE 50 ML IV SCH (22:28)
[2018-01-30] MEDS: DOCUSATE SODIUM 100 MG CAPSULE PO SCH (22:28)
[2018-01-30] MEDS: FAMOTIDINE 20 MG TABLET PO SCH (22:28)
[2018-01-31 05:48] LABS: ABSOLUTE BASOPHILS # (AUTO) 0.1 10^3/uL (0.0-0.2); ABSOLUTE EOSINOPHILS # (AUTO) 0.1 10^3/uL (0.0-0.6); ABSOLUTE LYMPHOCYTES (AUTO) 1.2 10^3/uL (0.5-4.7); ABSOLUTE MONOCYTES (AUTO) 1.8 10^3/uL (0.1-1.4); ABSOLUTE NEUT (AUTO) 12.4 10^3/uL (1.7-8.2); BASOPHILS % (AUTO) 0.5 % (0-2); EOSINOPHILS % (AUTO) 0.3 % (0-6); HEMATOCRIT 38.7 % (37.9-51.0); HEMOGLOBIN 13.1 g/dL (13.5-17.0); LYMPHOCYTES % (AUTO) 7.9 % (13-45); MEAN CORPUSCULAR HEMOGLOBIN 31.8 pg (27.0-33.4); MEAN CORPUSCULAR HGB CONC 33.9 g/dL (32.0-36.0); MEAN CORPUSCULAR VOLUME 94 fl (80-97); MONOCYTES % (AUTO) 11.9 % (3-13); PLATELET COUNT 166 10^3/uL (150-450); RED BLOOD COUNT 4.12 10^6/uL (4.35-5.55); RED CELL DISTRIBUTION WIDTH 13.7 % (11.5-14.0); SEGMENTED NEUTROPHILS % (AUTO) 79.4 % (42-78); TOTAL CELLS COUNTED % (AUTO) 100 %; WHITE BLOOD COUNT 15.6 10^3/uL (4.0-10.5)
[2018-01-31 06:15] LABS: ANION GAP 12 (5-19); BLOOD UREA NITROGEN 27 mg/dL (7-20); CALCIUM 9.6 mg/dL (8.4-10.2); CARBON DIOXIDE 29 mmol/L (22-30); CHLORIDE 101 mmol/L (98-107); GLUCOSE 126 mg/dL (75-110); POTASSIUM 4.3 mmol/L (3.6-5.0); SODIUM 142.2 mmol/L (137-145)
[2018-01-31] MEDS: DOCUSATE SODIUM 100 MG CAPSULE PO SCH ×2 (09:45→17:50)
[2018-01-31] MEDS: ASPIRIN 81 MG TABLET, ENT COATED PO SCH (09:49)
[2018-01-31] MEDS: CHOLECALCIFEROL (D3) 1,000 UNIT TABLET PO SCH (09:49)
[2018-01-31] MEDS: FAMOTIDINE 20 MG TABLET PO SCH ×2 (09:49→22:15)
[2018-01-31] MEDS: ENOXAPARIN SODIUM INJ 40 MG/0.4 ML DISP.SYRIN SUBCUT SCH (09:49)
[2018-01-31] MEDS: LISINOPRIL 10 MG TABLET PO SCH (09:49)
[2018-01-31] MEDS: ACETAMINOPHEN 325 MG TABLET PO PRN ×2 (09:54→16:18)
[2018-01-31] MEDS: ERTAPENEM SODIUM 1 GM in NORMAL SALINE 50 ML IV SCH (17:50)
[2018-01-31] MEDS: NORMAL SALINE 1000 ML 1,000 ML IV PRN (17:51)
--- NOTE | 2018-01-31 19:00 | PDOC PROGRESS REPORT ---
Subjective Progress Note for:: 01/31/18 Subjective:: GONZÁLEZ CAO JR is a 67 year old male who presented to the emergency room with a 3-day history of gradually worsening right flank pain. He describes the current pain as being moderately severe, colicky cramping in his right flank which waxes and wanes in intensity and radiates into the right groin at times. He admits accompanying symptoms of a low-grade fever, hematuria, urinary frequency and generalized malaise. He further relates that he was recently treated for urinary tract infection here at [facility] and though no infectious organism was identified he was sent home with Bactrim DS to finish a course of therapy. After the therapy was completed he had a week or so before he began having early symptoms again. In the emergency room patient was found to have significant pyuria with a positive nitrite reaction on the urinalysis. He was also noted to have a moderate leukocytosis and as such it was deemed that he should be considered a outpatient treatment failure and be admitted for broad-spectrum IV antibiotic therapy until such time as his urine culture can aid in focusing antibiotic therapy. 01/31/2018: Patient is doing well today continues to have right flank and lower abdominal pain although it is slightly decreased from his pain of the time of admission. He also continues to feel a mild generalized malaise but this is significantly more improved than is his pain. He does continue to run a fever at times but it responds well to Tylenol as a rule. He is having no difficulty with eating or drinking and elimination is going well. He has noticed no further gross hematuria however his urine is somewhat darker than usual. He is informed that he does have a gram-negative ying present in his blood culture and that he will need to be on antibiotics for an extended period of time due to this problem. He is reassured that [facility] should provide adequate coverage for therapy for gram-negative ying urinary tract infection with bacteremia/sepsis. Reason For Visit: URINARY TRACT INFECTION Physical Exam Vital Signs: Temp Pulse Resp BP Pulse Ox 99.4 F 89 20 128/70 H 96 01/31/18 17:04 01/31/18 16:00 01/31/18 16:00 01/31/18 16:00 01/31/18 16:00 Intake & Output 01/29/18 01/30/18 01/31/18 23:59 23:59 23:59 Intake Total 1650 1028 Output Total 100 Balance 1650 928 Weight 111.2 kg General appearance: PRESENT: no acute distress, cooperative Head exam: PRESENT: atraumatic, normocephalic Eye exam: PRESENT: conjunctiva pink, EOMI Ear exam: PRESENT: normal external ear exam. ABSENT: bleeding Mouth exam: PRESENT: neck supple, other - Oral mucosa is moist and intact, dentition is in fair repair Neck exam: ABSENT: thyromegaly, tracheal deviation Respiratory exam: PRESENT: clear to auscultation pat, symmetrical, unlabored Cardiovascular exam: PRESENT: RRR. ABSENT: clicks, gallop, rubs Vascular exam: PRESENT: normal capillary refill. ABSENT: pallor GI/Abdominal exam: PRESENT: normal bowel sounds, soft Rectal exam: PRESENT: deferred Extremities exam: ABSENT: joint swelling, pedal edema Musculoskeletal exam: PRESENT: full ROM, normal inspection Neurological exam: PRESENT: alert, oriented to person, oriented to place, oriented to time, oriented to situation, CN II-XII grossly intact. ABSENT: motor sensory deficit Psychiatric exam: PRESENT: appropriate affect, normal mood Skin exam: PRESENT: dry, intact, warm Results Laboratory Results: 01/31/18 05:14 01/31/18 05:14 01/31/18 01/31/18 05:14 05:14 WBC 15.6 H RBC 4.12 L Hgb 13.1 L Hct 38.7 MCV 94 MCH 31.8 MCHC 33.9 RDW 13.7 Plt Count 166 Seg Neutrophils % 79.4 H Lymphocytes % 7.9 L Monocytes % 11.9 Eosinophils % 0.3 Basophils % 0.5 Absolute Neutrophils 12.4 H Absolute Lymphocytes 1.2 Absolute Monocytes 1.8 H Absolute Eosinophils 0.1 Absolute Basophils 0.1 Sodium 142.2 Potassium 4.3 Chloride 101 Carbon Dioxide 29 Anion Gap 12 BUN 27 H Creatinine 1.03 Est GFR ( Amer) > 60 Est GFR (Non-Af Amer) > 60 Glucose 126 H Calcium 9.6 Magnesium 1.8 Impressions: Limited or Localized CT 01/30/18 11:29 IMPRESSION: 1. Diffuse urinary bladder wall thickening is suggested. 2. Small to mild umbilical hernia contains fat and mesenteric vessels. There is haziness involving the fat within the umbilical hernia raising question of inflammatory changes. 3. Small fat containing left inguinal hernia. 4. Additional findings as above. . Assessment & Plan - Diagnosis (1) Pyelonephritis Is this a current diagnosis for this admission?: Yes Plan: Patient is admitted for IV antibiotic therapy with broad-spectrum agents as he essentially has failed therapy on previous treatment as an inpatient and outpatient. He will be started on Invanz until culture C&S results can help to focus antibiotic therapy. He will be given pain control for his pyelonephritis as well as morphine on a sliding scale basis 2-4 mg IV q. 2 hours as needed pain. (2) Coronary artery disease Qualifiers: Coronary Disease-Associated Artery/Lesion type: [place] artery [place] vs. transplanted heart: [place] heart Associated angina: angina presence unspecified Qualified Code(s): I25.10 - Atherosclerotic heart disease of [place] coronary artery without angina pectoris Is this a current diagnosis for this admission?: Yes Plan: Patient will be continued on his current cardiac regimen throughout his hospital course and time of discharge. (3) Hypertension Is this a current diagnosis for this admission?: Yes Plan: Patient will be continued on his current antihypertensive regimen throughout his hospital course and at the time of discharge. (4) Fever Qualifiers: Fever type: unspecified Qualified Code(s): R50.9 - Fever, unspecified Is this a current diagnosis for this admission?: Yes Plan: Patient's fever will be addressed by utilizing acetaminophen 650 mg every 4 hours as needed. - Time Time Spent with patient: 15-24 minutes Medications reviewed and adjusted accordingly: Yes
[2018-02-01 06:24] LABS: ABSOLUTE EOSINOPHILS # (AUTO) 0.1 10^3/uL (0.0-0.6); ABSOLUTE LYMPHOCYTES (AUTO) 1.1 10^3/uL (0.5-4.7); ABSOLUTE MONOCYTES (AUTO) 1.5 10^3/uL (0.1-1.4); BASOPHILS % (AUTO) 0.3 % (0-2); HEMATOCRIT 36.1 % (37.9-51.0); HEMOGLOBIN 12.3 g/dL (13.5-17.0); LYMPHOCYTES % (AUTO) 10.9 % (13-45); MEAN CORPUSCULAR HEMOGLOBIN 31.8 pg (27.0-33.4); MEAN CORPUSCULAR HGB CONC 34.1 g/dL (32.0-36.0); MEAN CORPUSCULAR VOLUME 93 fl (80-97); MONOCYTES % (AUTO) 15.5 % (3-13); PLATELET COUNT 140 10^3/uL (150-450); RED BLOOD COUNT 3.87 10^6/uL (4.35-5.55); RED CELL DISTRIBUTION WIDTH 13.6 % (11.5-14.0); SEGMENTED NEUTROPHILS % (AUTO) 72.3 % (42-78); TOTAL CELLS COUNTED % (AUTO) 100 %; WHITE BLOOD COUNT 9.7 10^3/uL (4.0-10.5)
[2018-02-01 06:35] LABS: ANION GAP 11 (5-19); BLOOD UREA NITROGEN 23 mg/dL (7-20); CALCIUM 9.2 mg/dL (8.4-10.2); CARBON DIOXIDE 27 mmol/L (22-30); CHLORIDE 103 mmol/L (98-107); GLUCOSE 114 mg/dL (75-110); POTASSIUM 4.2 mmol/L (3.6-5.0); SODIUM 140.6 mmol/L (137-145)
[2018-02-01] MEDS: NORMAL SALINE 1000 ML 1,000 ML IV PRN ×2 (09:08→23:39)
[2018-02-01] MEDS: CHOLECALCIFEROL (D3) 1,000 UNIT TABLET PO SCH (09:14)
[2018-02-01] MEDS: ENOXAPARIN SODIUM INJ 40 MG/0.4 ML DISP.SYRIN SUBCUT SCH (09:14)
[2018-02-01] MEDS: DOCUSATE SODIUM 100 MG CAPSULE PO SCH ×2 (09:14→17:26)
[2018-02-01] MEDS: ASPIRIN 81 MG TABLET, ENT COATED PO SCH (09:14)
[2018-02-01] MEDS: FAMOTIDINE 20 MG TABLET PO SCH ×2 (09:14→21:29)
[2018-02-01] MEDS: LISINOPRIL 10 MG TABLET PO SCH (09:14)
--- NOTE | 2018-02-01 15:25 | PDOC PROGRESS REPORT ---
Subjective Progress Note for:: 02/01/18 Subjective:: GONZÁLEZ CAO JR is a 67 year old male who presented to the emergency room with a 3-day history of gradually worsening right flank pain. He describes the current pain as being moderately severe, colicky cramping in his right flank which waxes and wanes in intensity and radiates into the right groin at times. He admits accompanying symptoms of a low-grade fever, hematuria, urinary frequency and generalized malaise. He further relates that he was recently treated for urinary tract infection here at [facility] and though no infectious organism was identified he was sent home with Bactrim DS to finish a course of therapy. After the therapy was completed he had a week or so before he began having early symptoms again. In the emergency room patient was found to have significant pyuria with a positive nitrite reaction on the urinalysis. He was also noted to have a moderate leukocytosis and as such it was deemed that he should be considered a outpatient treatment failure and be admitted for broad-spectrum IV antibiotic therapy until such time as his urine culture can aid in focusing antibiotic therapy. 01/31/2018: Patient is doing well today continues to have right flank and lower abdominal pain although it is slightly decreased from his pain of the time of admission. He also continues to feel a mild generalized malaise but this is significantly more improved than is his pain. He does continue to run a fever at times but it responds well to Tylenol as a rule. He is having no difficulty with eating or drinking and elimination is going well. He has noticed no further gross hematuria however his urine is somewhat darker than usual. He is informed that he does have a gram-negative ying present in his blood culture and that he will need to be on antibiotics for an extended period of time due to this problem. He is reassured that Invanz should provide adequate coverage for therapy for gram-negative ying urinary tract infection with bacteremia/sepsis. 02/01/2018: González states that he is doing better today as his flank and lower abdominal pain has essentially resolved. He states his chronic back pain is still present but he is otherwise having just minimal soreness in the right flank area that was so painful previously. He also indicates that he had some subjective fever and chills again last night but that he woke up in the middle the night with cold and damp and sweaty hospital garments, which he feels indicates that "his fever broke". He continues to eat and drink well and have no difficulty with elimination. His urine is no longer so dark and brownish in color and he was happy to hear that his bladder scan was 0 indicating that he had completely eliminated all urine from his bladder with his last void. I instructed him that this indicates that his prostate was not causing any obstruction that might have led to a urinary tract infection. I also informed him that his white blood count had decreased to a normal level. Blood culture results are still pending, but his urine culture and sensitivity is positive for E. coli that is pansensitive. Reason For Visit: URINARY TRACT INFECTION Physical Exam Vital Signs: Temp Pulse Resp BP Pulse Ox 98.3 F 78 16 121/73 95 02/01/18 11:53 02/01/18 11:53 02/01/18 11:53 02/01/18 11:53 02/01/18 11:53 Intake & Output 01/30/18 01/31/18 02/01/18 23:59 23:59 23:59 Intake Total 1650 1378 1000 Output Total 100 Balance 1650 1278 1000 Weight 111.2 kg 110 kg General appearance: PRESENT: no acute distress, cooperative, obese Head exam: PRESENT: atraumatic, normocephalic Eye exam: PRESENT: conjunctiva pink, EOMI Ear exam: PRESENT: normal external ear exam. ABSENT: drainage Mouth exam: PRESENT: neck supple, other - Oral mucosa is moist and intact, dentition is in fair repair. Neck exam: ABSENT: JVD, tracheal deviation Respiratory exam: PRESENT: clear to auscultation pat, symmetrical, unlabored Cardiovascular exam: PRESENT: RRR. ABSENT: clicks, gallop, rubs Vascular exam: PRESENT: normal capillary refill. ABSENT: pallor GI/Abdominal exam: PRESENT: normal bowel sounds, soft. ABSENT: tenderness Rectal exam: PRESENT: deferred Extremities exam: ABSENT: joint swelling, pedal edema Musculoskeletal exam: PRESENT: ambulatory - [id number], full ROM, normal inspection Neurological exam: PRESENT: alert, oriented to person, oriented to place, oriented to time, oriented to situation, CN II-XII grossly intact. ABSENT: motor sensory deficit Psychiatric exam: PRESENT: appropriate affect, normal mood Skin exam: PRESENT: dry, intact, warm Results Laboratory Results: 02/01/18 06:02 02/01/18 06:02 02/01/18 02/01/18 06:02 06:02 WBC 9.7 RBC 3.87 L Hgb 12.3 L Hct 36.1 L MCV 93 MCH 31.8 MCHC 34.1 RDW 13.6 Plt Count 140 L Seg Neutrophils % 72.3 Lymphocytes % 10.9 L Monocytes % 15.5 H Eosinophils % 1.0 Basophils % 0.3 Absolute Neutrophils 7.0 Absolute Lymphocytes 1.1 Absolute Monocytes 1.5 H Absolute Eosinophils 0.1 Absolute Basophils 0.0 Sodium 140.6 Potassium 4.2 Chloride 103 Carbon Dioxide 27 Anion Gap 11 BUN 23 H Creatinine 0.91 Est GFR ( Amer) > 60 Est GFR (Non-Af Amer) > 60 Glucose 114 H Calcium 9.2 Magnesium 1.8 Impressions: Limited or Localized CT 01/30/18 11:29 IMPRESSION: 1. Diffuse urinary bladder wall thickening is suggested. 2. Small to mild umbilical hernia contains fat and mesenteric vessels. There is haziness involving the fat within the umbilical hernia raising question of inflammatory changes. 3. Small fat containing left inguinal hernia. 4. Additional findings as above. . Assessment & Plan - Diagnosis (1) Pyelonephritis Is this a current diagnosis for this admission?: Yes Plan: Patient is admitted for IV antibiotic therapy with broad-spectrum agents as he essentially has failed therapy on previous treatment as an inpatient and outpatient. He will be started on Invanz until culture C&S results can help to focus antibiotic therapy. He will be given pain control for his pyelonephritis as well as morphine on a sliding scale basis 2-4 mg IV q. 2 hours as needed pain. 02/01/2018: Urine C&S reveals a pansensitive E. coli. Patient will be continued on Invanz 1 g IV daily until the blood culture result has returned. Antibiotic therapy will hopefully then be focused with an agent that can be administered orally. Patient will continue to use IV morphine on an as-needed basis for his pain. (2) Coronary artery disease Qualifiers: Coronary Disease-Associated Artery/Lesion type: [place] artery [place] vs. transplanted heart: [place] heart Associated angina: angina presence unspecified Qualified Code(s): I25.10 - Atherosclerotic heart disease of [place] coronary artery without angina pectoris Is this a current diagnosis for this admission?: Yes Plan: Patient will be continued on his current cardiac regimen throughout his hospital course and time of discharge. (3) Hypertension Is this a current diagnosis for this admission?: Yes Plan: Patient will be continued on his current antihypertensive regimen throughout his hospital course and at the time of discharge. (4) Fever Qualifiers: Fever type: unspecified Qualified Code(s): R50.9 - Fever, unspecified Is this a current diagnosis for this admission?: Yes Plan: Patient's fever will be addressed by utilizing acetaminophen 650 mg every 4 hours as needed. - Time Time Spent with patient: 25-34 minutes Medications reviewed and adjusted accordingly: Yes Anticipated discharge: Home Within: within 72 hours
[2018-02-01] MEDS ORDERED: ERTAPENEM SODIUM 1 GM in NORMAL SALINE 50 ML IV SCH (18:00)
[2018-02-02 06:07] LABS: HEMATOCRIT 36.1 % (37.9-51.0); HEMOGLOBIN 12.3 g/dL (13.5-17.0); MEAN CORPUSCULAR HEMOGLOBIN 31.8 pg (27.0-33.4); MEAN CORPUSCULAR HGB CONC 34.1 g/dL (32.0-36.0); MEAN CORPUSCULAR VOLUME 93 fl (80-97); PLATELET COUNT 132 10^3/uL (150-450); RED BLOOD COUNT 3.87 10^6/uL (4.35-5.55); RED CELL DISTRIBUTION WIDTH 13.4 % (11.5-14.0); WHITE BLOOD COUNT 6.5 10^3/uL (4.0-10.5)
[2018-02-02 06:35] LABS: ANION GAP 12 (5-19); BLOOD UREA NITROGEN 22 mg/dL (7-20); CALCIUM 9.2 mg/dL (8.4-10.2); CARBON DIOXIDE 27 mmol/L (22-30); CHLORIDE 105 mmol/L (98-107); GLUCOSE 114 mg/dL (75-110); POTASSIUM 4.5 mmol/L (3.6-5.0); SODIUM 143.5 mmol/L (137-145)
[2018-02-02 06:50] LABS: BASOPHILS % (MANUAL) 0 % (0-2)
[2018-02-02 06:51] LABS: ABSOLUTE LYMPHOCYTES# (MANUAL) 1.7 10^3/uL (0.5-4.7); ABSOLUTE MONOCYTES # (MANUAL) 0.8 10^3/uL (0.1-1.4); EOSINOPHILS % (MANUAL) 1 % (0-6); LYMPHOCYTES % (MANUAL) 26 % (13-45); MONOCYTES % (MANUAL) 12 % (3-13); PLATELET COMMENT ADEQUATE; RBC MORPHOLOGY COMMENT NORMO-CYTIC/CHROMIC; SEGMENTED NEUTROPHILS % (MAN) 61 % (42-78); TOTAL CELLS COUNTED 100
[2018-02-02] MEDS: FAMOTIDINE 20 MG TABLET PO SCH ×2 (10:18→21:39)
[2018-02-02] MEDS: ENOXAPARIN SODIUM INJ 40 MG/0.4 ML DISP.SYRIN SUBCUT SCH (10:18)
[2018-02-02] MEDS: ASPIRIN 81 MG TABLET, ENT COATED PO SCH (10:18)
[2018-02-02] MEDS: DOCUSATE SODIUM 100 MG CAPSULE PO SCH ×2 (10:18→18:25)
[2018-02-02] MEDS: LISINOPRIL 10 MG TABLET PO SCH (10:18)
[2018-02-02] MEDS: CHOLECALCIFEROL (D3) 1,000 UNIT TABLET PO SCH (10:23)
[2018-02-02] MEDS: LEVOFLOXACIN 750 MG TABLET PO SCH (10:23)
--- NOTE | 2018-02-02 11:27 | PDOC PROGRESS REPORT ---
Subjective Progress Note for:: 02/02/18 Subjective:: BLAIR CAO JR is a 67 year old male who presented to the emergency room with a 3-day history of gradually worsening right flank pain. He describes the current pain as being moderately severe, colicky cramping in his right flank which waxes and wanes in intensity and radiates into the right groin at times. He admits accompanying symptoms of a low-grade fever, hematuria, urinary frequency and generalized malaise. He further relates that he was recently treated for urinary tract infection here at [facility] and though no infectious organism was identified he was sent home with Bactrim DS to finish a course of therapy. After the therapy was completed he had a week or so before he began having early symptoms again. In the emergency room patient was found to have significant pyuria with a positive nitrite reaction on the urinalysis. He was also noted to have a moderate leukocytosis and as such it was deemed that he should be considered a outpatient treatment failure and be admitted for broad-spectrum IV antibiotic therapy until such time as his urine culture can aid in focusing antibiotic therapy. 01/31/2018: Patient is doing well today continues to have right flank and lower abdominal pain although it is slightly decreased from his pain of the time of admission. He also continues to feel a mild generalized malaise but this is significantly more improved than is his pain. He does continue to run a fever at times but it responds well to Tylenol as a rule. He is having no difficulty with eating or drinking and elimination is going well. He has noticed no further gross hematuria however his urine is somewhat darker than usual. He is informed that he does have a gram-negative ying present in his blood culture and that he will need to be on antibiotics for an extended period of time due to this problem. He is reassured that Invanz should provide adequate coverage for therapy for gram-negative ying urinary tract infection with bacteremia/sepsis. 02/01/2018: Blair states that he is doing better today as his flank and lower abdominal pain has essentially resolved. He states his chronic back pain is still present but he is otherwise having just minimal soreness in the right flank area that was so painful previously. He also indicates that he had some subjective fever and chills again last night but that he woke up in the middle the night with cold and damp and sweaty hospital garments, which he feels indicates that "his fever broke". He continues to eat and drink well and have no difficulty with elimination. His urine is no longer so dark and brownish in color and he was happy to hear that his bladder scan was 0 indicating that he had completely eliminated all urine from his bladder with his last void. I instructed him that this indicates that his prostate was not causing any obstruction that might have led to a urinary tract infection. I also informed him that his white blood count had decreased to a normal level. Blood culture results are still pending, but his urine culture and sensitivity is positive for E. coli that is pansensitive. 02/02/2018: Patient is doing well again today as he is tolerating both activity and diet quite well. He is having no difficulty with eliminations and feels like he is at his usual health baseline. He has had no further episodes of fever, chills or diaphoresis. He is very happy that he has a very pansensitive E. coli as his infectious agent and will be able to be treated with oral antibiotics at home to finish his 14-day course of therapy. We will begin his oral Levaquin 750 mg daily today and if he continues to do well he will be discharged home tomorrow. Reason For Visit: URINARY TRACT INFECTION Physical Exam Vital Signs: Temp Pulse Resp BP Pulse Ox 98.0 F 66 16 134/75 H 97 02/02/18 07:51 02/02/18 07:51 02/02/18 07:51 02/02/18 07:51 02/02/18 07:51 Intake & Output 01/31/18 02/01/18 02/02/18 23:59 23:59 23:59 Intake Total 1378 2552 320 Output Total 100 450 Balance 1278 2102 320 Weight 111.2 kg 110 kg 110.2 kg General appearance: PRESENT: no acute distress, cooperative Head exam: PRESENT: atraumatic, normocephalic Eye exam: PRESENT: conjunctiva pink, EOMI Ear exam: PRESENT: normal external ear exam. ABSENT: drainage Mouth exam: PRESENT: neck supple. ABSENT: other - Oral mucosa is moist and intact, dentition is in good repair. Neck exam: ABSENT: JVD, tracheal deviation Respiratory exam: PRESENT: clear to auscultation pat, symmetrical, unlabored Cardiovascular exam: PRESENT: RRR. ABSENT: clicks, gallop, rubs Vascular exam: PRESENT: normal capillary refill. ABSENT: pallor GI/Abdominal exam: PRESENT: normal bowel sounds, soft Rectal exam: PRESENT: deferred Extremities exam: ABSENT: joint swelling, pedal edema Musculoskeletal exam: PRESENT: ambulatory, full ROM, normal inspection Neurological exam: PRESENT: alert, oriented to person, oriented to place, oriented to time, oriented to situation, CN II-XII grossly intact. ABSENT: motor sensory deficit Psychiatric exam: PRESENT: appropriate affect, normal mood Skin exam: PRESENT: dry, intact, warm Results Laboratory Results: 02/02/18 05:29 02/02/18 05:29 02/02/18 02/02/18 05:29 05:29 WBC 6.5 RBC 3.87 L Hgb 12.3 L Hct 36.1 L MCV 93 MCH 31.8 MCHC 34.1 RDW 13.4 Plt Count 132 L Seg Neutrophils % Not Reportable Lymphocytes % Not Reportable Monocytes % Not Reportable Eosinophils % Not Reportable Basophils % Not Reportable Absolute Neutrophils Not Reportable Absolute Lymphocytes Not Reportable Absolute Monocytes Not Reportable Absolute Eosinophils Not Reportable Absolute Basophils Not Reportable Sodium 143.5 Potassium 4.5 Chloride 105 Carbon Dioxide 27 Anion Gap 12 BUN 22 H Creatinine 0.94 Est GFR ( Amer) > 60 Est GFR (Non-Af Amer) > 60 Glucose 114 H Calcium 9.2 Magnesium 1.9 Impressions: Limited or Localized CT 01/30/18 11:29 IMPRESSION: 1. Diffuse urinary bladder wall thickening is suggested. 2. Small to mild umbilical hernia contains fat and mesenteric vessels. There is haziness involving the fat within the umbilical hernia raising question of inflammatory changes. 3. Small fat containing left inguinal hernia. 4. Additional findings as above. . Assessment & Plan - Diagnosis (1) E coli bacteremia Is this a current diagnosis for this admission?: Yes Plan: Patient was found to have a gram-negative ying present in 1 of 2 blood cultures obtained on admission. The gram-negative ying has subsequently been identified as a pansensitive E. coli that would match the same organism that has been grown from his urine. Patient had been treated with Invanz from the time of his admission until culture and sensitivity results were available for both the urine and blood cultures. 02/02/2018: Patient will be placed on IV Levaquin today using 750 mg p.o. daily to obtain an adequate serum drug level to treat the E. coli according to its OLYA range for being considered susceptible to levofloxacin. This course of therapy will need to be continued for a total of 14 days of antibiotic therapy. (2) Pyelonephritis Is this a current diagnosis for this admission?: Yes Plan: Patient is admitted for IV antibiotic therapy with broad-spectrum agents as he essentially has failed therapy on previous treatment as an inpatient and outpatient. He will be started on Invanz until culture C&S results can help to focus antibiotic therapy. He will be given pain control for his pyelonephritis as well as morphine on a sliding scale basis 2-4 mg IV q. 2 hours as needed pain. 02/01/2018: Urine C&S reveals a pansensitive E. coli. Patient will be continued on Invanz 1 g IV daily until the blood culture result has returned. Antibiotic therapy will hopefully then be focused with an agent that can be administered orally. Patient will continue to use IV morphine on an as-needed basis for his pain. 02/02/2018: Patient will be placed on IV Levaquin today using 750 mg p.o. daily to obtain an adequate serum drug level to treat the E. coli according to its OLYA range for being considered susceptible to levofloxacin. (3) Coronary artery disease Qualifiers: Coronary Disease-Associated Artery/Lesion type: [place] artery [place] vs. transplanted heart: [place] heart Associated angina: angina presence unspecified Qualified Code(s): I25.10 - Atherosclerotic heart disease of [place] coronary artery without angina pectoris Is this a current diagnosis for this admission?: Yes Plan: Patient will be continued on his current cardiac regimen throughout his hospital course and time of discharge. (4) Hypertension Is this a current diagnosis for this admission?: Yes Plan: Patient will be continued on his current antihypertensive regimen throughout his hospital course and at the time of discharge. (5) Fever Qualifiers: Fever type: unspecified Qualified Code(s): R50.9 - Fever, unspecified Is this a current diagnosis for this admission?: Yes Plan: Patient's fever will be addressed by utilizing acetaminophen 650 mg every 4 hours as needed. - Time Time Spent with patient: 15-24 minutes Medications reviewed and adjusted accordingly: Yes Within: within 24 hours
[2018-02-03] MEDS: LISINOPRIL 10 MG TABLET PO SCH (09:58)
[2018-02-03] MEDS: LEVOFLOXACIN 750 MG TABLET PO SCH (09:59)
[2018-02-03] MEDS: FAMOTIDINE 20 MG TABLET PO SCH (09:59)
[2018-02-03] MEDS: CHOLECALCIFEROL (D3) 1,000 UNIT TABLET PO SCH (09:59)
[2018-02-03] MEDS: DOCUSATE SODIUM 100 MG CAPSULE PO SCH (09:59)
[2018-02-03] MEDS: ASPIRIN 81 MG TABLET, ENT COATED PO SCH (09:59)
[2018-02-03] MEDS: ENOXAPARIN SODIUM INJ 40 MG/0.4 ML DISP.SYRIN SUBCUT SCH (10:00)
[2018-02-03 13:29] VITALS: BP 120/72
--- NOTE | 2018-02-03 17:14 | PDOC DISCHARGE SUMMARY ---
General - Admit/Disc Date/PCP Admission Date/Primary Care Provider: 01/30/18 15:22 Discharge Date: 02/03/18 - Discharge Diagnosis (1) E coli bacteremia Is this a current diagnosis for this admission?: Yes Summary: Patient was found to have a gram-negative ying present in 1 of 2 blood cultures obtained on admission. The gram-negative ying has subsequently been identified as a pansensitive E. coli that would match the same organism that has been grown from his urine. Patient had been treated with Invanz from the time of his admission until culture and sensitivity results were available for both the urine and blood cultures. 02/02/2018: Patient will be placed on IV Levaquin today using 750 mg p.o. daily to obtain an adequate serum drug level to treat the E. coli according to its OLYA range for being considered susceptible to levofloxacin. This course of therapy will need to be continued for a total of 14 days of antibiotic therapy. (2) Pyelonephritis Is this a current diagnosis for this admission?: Yes Summary: Patient is admitted for IV antibiotic therapy with broad-spectrum agents as he essentially has failed therapy on previous treatment as an inpatient and outpatient. He will be started on Invanz until culture C&S results can help to focus antibiotic therapy. He will be given pain control for his pyelonephritis as well as morphine on a sliding scale basis 2-4 mg IV q. 2 hours as needed pain. 02/01/2018: Urine C&S reveals a pansensitive E. coli. Patient will be continued on Invanz 1 g IV daily until the blood culture result has returned. Antibiotic therapy will hopefully then be focused with an agent that can be administered orally. Patient will continue to use IV morphine on an as-needed basis for his pain. 02/02/2018: Patient will be placed on IV Levaquin today using 750 mg p.o. daily to obtain an adequate serum drug level to treat the E. coli according to its OLYA range for being considered susceptible to levofloxacin. (3) Coronary artery disease Is this a current diagnosis for this admission?: Yes Summary: Patient will be continued on his current cardiac regimen throughout his hospital course and time of discharge. (4) Hypertension Is this a current diagnosis for this admission?: Yes Summary: Patient will be continued on his current antihypertensive regimen throughout his hospital course and at the time of discharge. (5) Fever Is this a current diagnosis for this admission?: Yes Summary: Patient's fever will be addressed by utilizing acetaminophen 650 mg every 4 hours as needed. - Additional Information Resuscitation Status: Full Code Discharge Diet: Cardiac Discharge Activity: Activity As Tolerated, Walk Frequently Prescriptions: Levofloxacin [Levaquin 750 mg Tablet] 750 mg PO DAILY 10 Days #10 tablet Home Medications: Aspirin [Adult Low Dose Aspirin EC] 81 mg PO DAILY 01/30/18 Cholecalciferol (Vitamin D3) [Vitamin D3 1000 Unit Tablet] 1,000 unit PO DAILY 01/30/18 Lisinopril [Zestril] 20 mg PO DAILY 01/30/18 [place]-3 Fatty Acids/Fish Oil [Fish Oil 1,000 mg Capsule] 1 cap PO DAILY Pravastatin Sodium [Pravachol] 80 mg PO QHS 01/30/18 Levofloxacin [Levaquin 750 mg Tablet] 750 mg PO DAILY 10 Days #10 tablet History of Present Illness Patient complains of: Right flank pain History of Present Illness: BLAIR CAO JR is a 67 year old male who presented to the emergency room with a 3-day history of gradually worsening right flank pain. He describes the current pain as being moderately severe, colicky cramping in his right flank which waxes and wanes in intensity and radiates into the right groin at times. He admits accompanying symptoms of a low-grade fever, hematuria, urinary frequency and generalized malaise. He further relates that he was recently treated for urinary tract infection here at [facility] and though no infectious organism was identified he was sent home with Bactrim DS to finish a course of therapy. After the therapy was completed he had a week or so before he began having early symptoms again. In the emergency room patient was found to have significant pyuria with a positive nitrite reaction on the urinalysis. He was also noted to have a moderate leukocytosis and as such it was deemed that he should be considered a outpatient treatment failure and be admitted for broad-spectrum IV antibiotic therapy until such time as his urine culture can aid in focusing antibiotic therapy. Hospital Course Hospital Course: 01/31/2018: Patient is doing well today continues to have right flank and lower abdominal pain although it is slightly decreased from his pain of the time of admission. He also continues to feel a mild generalized malaise but this is significantly more improved than is his pain. He does continue to run a fever at times but it responds well to Tylenol as a rule. He is having no difficulty with eating or drinking and elimination is going well. He has noticed no further gross hematuria however his urine is somewhat darker than usual. He is informed that he does have a gram-negative ying present in his blood culture and that he will need to be on antibiotics for an extended period of time due to this problem. He is reassured that [facility] should provide adequate coverage for therapy for gram-negative ying urinary tract infection with bacteremia/sepsis. 02/01/2018: Blair states that he is doing better today as his flank and lower abdominal pain has essentially resolved. He states his chronic back pain is still present but he is otherwise having just minimal soreness in the right flank area that was so painful previously. He also indicates that he had some subjective fever and chills again last night but that he woke up in the middle the night with cold and damp and sweaty hospital garments, which he feels indicates that "his fever broke". He continues to eat and drink well and have no difficulty with elimination. His urine is no longer so dark and brownish in color and he was happy to hear that his bladder scan was 0 indicating that he had completely eliminated all urine from his bladder with his last void. I instructed him that this indicates that his prostate was not causing any obstruction that might have led to a urinary tract infection. I also informed him that his white blood count had decreased to a normal level. Blood culture results are still pending, but his urine culture and sensitivity is positive for E. coli that is pansensitive. 02/02/2018: Patient is doing well again today as he is tolerating both activity and diet quite well. He is having no difficulty with eliminations and feels like he is at his usual health baseline. He has had no further episodes of fever, chills or diaphoresis. He is very happy that he has a very pansensitive E. coli as his infectious agent and will be able to be treated with oral antibiotics at home to finish his 14-day course of therapy. We will begin his oral Levaquin 750 mg daily today and if he continues to do well he will be discharged home tomorrow. 02/03/2018: Patient continues to do well and tolerated oral therapy quite well overnight. Because of his excellent overall response he will be discharged home in improved and stable condition today. Physical Exam Vital Signs: Temp Pulse Resp BP Pulse Ox 98.0 F 66 16 120/72 97 02/03/18 13:20 02/03/18 13:20 02/03/18 13:20 02/03/18 13:20 02/03/18 13:20 Intake & Output 02/01/18 02/02/18 02/03/18 23:59 23:59 23:59 Intake Total 2552 2863 Output Total 450 Balance 2102 2863 Weight 110 kg 110.2 kg 110.2 kg General appearance: PRESENT: no acute distress, cooperative Head exam: PRESENT: atraumatic, normocephalic Eye exam: PRESENT: conjunctiva pink, EOMI Ear exam: PRESENT: normal external ear exam Mouth exam: PRESENT: neck supple Respiratory exam: PRESENT: clear to auscultation pat, symmetrical, unlabored Cardiovascular exam: PRESENT: RRR. ABSENT: clicks, gallop, rubs Vascular exam: PRESENT: normal capillary refill. ABSENT: pallor GI/Abdominal exam: PRESENT: normal bowel sounds, soft. ABSENT: tenderness Rectal exam: PRESENT: deferred Musculoskeletal exam: PRESENT: ambulatory, full ROM Neurological exam: PRESENT: alert, oriented to person, oriented to place, oriented to time, oriented to situation Psychiatric exam: PRESENT: appropriate affect, normal mood Skin exam: PRESENT: dry, intact, warm Results Laboratory Results: 02/02/18 05:29 02/02/18 05:29 Impressions: Limited or Localized CT 01/30/18 11:29 IMPRESSION: 1. Diffuse urinary bladder wall thickening is suggested. 2. Small to mild umbilical hernia contains fat and mesenteric vessels. There is haziness involving the fat within the umbilical hernia raising question of inflammatory changes. 3. Small fat containing left inguinal hernia. 4. Additional findings as above. . Qualifiers - * PATIENT BEING DISCHARGED WITH ANY OF THE FOLLOWING DIAGNOSIS: No Plan Discharge Plan: Discharged to home in improved and stable condition Time Spent: Greater than 30 Minutes
== END 2018-02-03 13:53 | disposition home or self-care (01) | DRG 690 ==
LOC: ER 09:58 → EH 15:22 → 4S 18:53
PROVIDERS: ADMIT Emergency Medicine; ATTEND Emergency Medicine
DX: N10 Acute pyelonephritis (principal); R78.81 Bacteremia; B96.20 Unspecified Escherichia coli [E. coli] as the cause of diseases classified elsewhere; I25.10 Atherosclerotic heart disease of native coronary artery without angina pectoris; I10 Essential (primary) hypertension; E78.00 Pure hypercholesterolemia, unspecified; I25.2 Old myocardial infarction; Z79.899 Other long term (current) drug therapy; Z95.5 Presence of coronary angioplasty implant and graft; Z79.82 Long term (current) use of aspirin; Z82.49 Family history of ischemic heart disease and other diseases of the circulatory system; Z83.3 Family history of diabetes mellitus
CPT/HCPCS: 36415; 76380; 80048; 80053; 81001; 82803; 83605; 83690; 83735; 85025; 87040; 87077; 87086; 87088; 87186; 96361; 96365; 96366; 99285; J0696; J1335; J1650; J7030